=== PATIENT | male | born 1945 | race Caucasian/White ===

== ENCOUNTER → 2018-04-20 | Outpatient (CLI) | payer MEDICARE, BC ==
[2018-04-20 14:11] LABS: Albumin 3.9 g/dL (3.5-5.0); Calcium 8.8 mg/dL (8.4-10.2); Potassium 4.7 mmol/L (3.5-5.1); Total Bilirubin 0.8 mg/dL (0.2-1.3); Total Protein 6.4 g/dL (6.3-8.2)
[2018-04-20 14:25] LABS: T4, Free (Free Thyroxine) 0.73 ng/dL (0.78-2.19)
[2018-04-20 22:17] LABS: Hemoglobin A1C 6.2 % (4.0-6.0)
== END | disposition home or self-care (01) ==
LOC: LABWHC1 12:55
PROVIDERS: ATTEND Internal Medicine Endocrinology, Diabetes & Metabolism
DX: E03.8 Other specified hypothyroidism (principal); R73.03 Prediabetes
CPT/HCPCS: 36415; 80053; 83036; 84439; 84443

== ENCOUNTER 2019-03-01 20:41 | Emergency (ER) | payer BC, MEDICARE ==
[2019-03-01 20:57] VITALS: RESP 18; TEMP 99
[2019-03-01] MEDS ORDERED: cloNIDine HCL 0.2 MG TAB PO STA (21:06)
--- NOTE | 2019-03-01 21:10 | ED ---
General Adult HPI - General Chief complaint: Recheck/Abnormal Lab/Rx Stated complaint: Hypertension Time Seen by Provider: 03/01/19 20:45 Source: patient, EMS Mode of arrival: EMS Limitations: no limitations - History of Present Illness Initial comments: 73-year-old male presenting with generalized headache for the last 3 days. Patient states it comes return on 2 PM, is not accompanied by any associated symptoms, and is alleviated with Ativan. He denies any history of headaches in the past. He denies head injury, blood thinner use, change in vision, focal weakness. Patient states that he called EMS tonight because of he was speaking with his friend about a headache and they told him to be concerned that he could be a stroke. He currently is not having any symptoms. He was found to be markedly hypertensive by EMS. Patient states he is noncompliant with his Norvasc due to side effects, but states it is been taking his other medications as prescribed. He said he is tried multiple blood pressure medications the past but finds that he does not like the way they make him feel. He denies any chest pain or shortness of breath. - Related Data Home Medications Medication Instructions Recorded Confirmed Atenolol [Tenormin] 50 mg PO BID 07/04/17 07/04/17 Cholecalciferol (Vitamin D3) 2,000 unit PO DAILY 07/04/17 07/04/17 [Vitamin D3] LORazepam [Ativan] 3 mg PO DAILY 07/04/17 07/04/17 Verapamil HCl [Verapamil ER] 240 mg PO DAILY 07/04/17 07/04/17 Previous Rx's Medication Instructions Recorded Aspirin EC [Ecotrin Low Dose] 81 mg PO DAILY #30 tablet. 07/05/17 Doxazosin [Cardura] 1 mg PO HS #0 07/05/17 Fluticasone Nasal [place] [Flonase 1 spray EA NOSTRIL BID #1 spr 07/05/17 Nasal [place]] Levothyroxine Sodium [Synthroid] 25 mcg PO DAILY@0630 #30 tab 07/05/17 Losartan/Hydrochlorothiazide 1 each PO DAILY #30 tablet 07/05/17 [Losartan-Hctz 100-25 mg Tab] hydrALAZINE HCL [Apresoline] 50 mg PO TID #90 tab 07/06/17 Allergies Allergy/AdvReac Type Severity Reaction Status Date / Time amoxicillin Allergy Unknown Verified 03/01/19 20:57 cephalexin Allergy Unknown Verified 03/01/19 20:57 ciprofloxacin [From Cipro] Allergy Unknown Verified 03/01/19 20:57 doxycycline Allergy Unknown Verified 03/01/19 20:57 epinephrine Allergy Unknown Verified 03/01/19 20:57 methylprednisolone Allergy Unknown Verified 03/01/19 20:57 Review of Systems ROS Statement: Those systems with pertinent positive or pertinent negative responses have been documented in the HPI. Review of Systems Constitutional: Denies fever, chills Eyes: Denies change in vision, Denies pain Ears, nose, mouth, throat: Positive headaches, Denies sore throat Cardiovascular: Denies chest pain. Denies palpitations Respiratory: Denies shortness of breath, Denies cough Gastrointestinal: Denies abdominal pain. Denies nausea, vomiting, diarrhea. Genitourinary: Denies hematuria, Denies infections Musculoskeletal: Denies pain, Denies swelling Integumentary: Denies rash Neurological: Positive headache, focal weakness, focal numbness Psychiatric: Denies anxiety, Denies depression Hematologic/Lymphatic: Denies easy bleeding or bruising ROS Other: All systems not noted in ROS Statement are negative. Past Medical History Past Medical History: Hypertension, Renal Disease, Thyroid Disorder Additional Past Medical History / Comment(s): Pt states he is unable to urinate- he self caths 6-8 times a day-states he doesn't know the exact reason why he cannot urinate, renal disease and pt states GFR has been around 48, UTIs, cervical disc disease, hypothyroid, upper abdominal pain 2 weeks ago, bilateral tinnitis, headaches, sinusitis. History of Any Multi-Drug Resistant Organisms: None Reported Past Surgical History: No Surgical Hx Reported Additional Past Surgical History / Comment(s): colonoscopy-normal Past Anesthesia/Blood Transfusion Reactions: No Reported Reaction Past Psychological History: Anxiety, Depression, Panic Disorder Smoking Status: Former smoker Past Alcohol Use History: None Reported Past Drug Use History: None Reported - Past Family History Father Family Medical History: No Reported History, Cancer (colon Cancer) Additional Family Medical History / Comment(s): Father was healthy. He lived to be 82 yrs. old. Mother Family Medical History: CVA/TIA, Hypertension Additional Family Medical History / Comment(s): Mother had mental health problems. She lived to be 80yrs old. Son(s) Family Medical History: Coronary Artery Disease (CAD) (One son secondary to acute VT at age 45) Additional Family Medical History / Comment(s): Patient does not have any brothers or sisters, no daughters General Exam - General Exam Comments Initial Comments: General: Awake, alert, No acute Distress HENT: Normocephalic. Atraumatic Eyes: PERRL. EOMI. No scleral icterus. No injected conjunctiva Neck: Full ROM Chest/Lungs: Clear to auscultation bilaterally. No wheezing, rhonchi, or rales Cardiac: Regular rate, rhythm. No murmurs or rubs Abdomen/GI: Soft, nontender, nondistended. No rebound, guarding, or rigidity. Musculoskeletal: Full ROM Skin: Warm, dry, intact Psych: Anxious appearing Neurologic: A/Ox3, no weakness, no sensory deficit, no abnormal gait, no coordination deficit. Finger to nose intact bilaterally, no pronator drift. Limitations: no limitations Course Vital Signs 03/01/19 03/01/19 03/02/19 20:53 23:09 01:55 Temperature 99.0 F Pulse Rate 56 L 61 59 L Respiratory 18 18 18 Rate Blood Pressure 220/115 198/120 129/70 O2 Sat by Pulse 97 99 96 Oximetry EKG Findings - EKG Comments: EKG Findings:: EKG shows normal sinus rhythm at a rate of [address] segment elevation, depression. No prolonged QT/QTc or TX interval. No dysrythmia noted. Medical Decision Making - Medical Decision Making 73-year-old male present with hypertension. Initial exam the patient is awake, alert, no acute distress. VSS. Patient is asymptomatic at this time is markedly hypertensive. He was given Catapres and Ativan, which he takes chronically) with improvement of his hypertension. His laboratory workup was negative for acute process, and a CT was negative as well. I discussed with the patient in length the importance of compliance with his antihypertensives. The patient was refusing further antihypertensives in the department as the concern for making him feel lightheaded. The patient has an appointment with his primary care physician on Monday. He was agreeable to taking the antihypertensives he has at home as prescribed until his follow-up appointment then, where he plans to discuss his current regimen. At this time there is no e vidence of end organ damage and the patient is not having a hypertensive emergency. No point while he was in the emergency department did he have a headache.No further emergent workup indicated. The patient was given return to ED instructions. They were instructed to follow up with their primary care provider. Stable for discharge at this time. - Lab Data Result diagrams: 03/01/19 21:50 03/01/19 21:50 Lab Results 03/01/19 03/01/19 03/01/19 Range/Units 21:50 21:50 21:50 WBC 8.7 (3.8-10.6) k/uL RBC 5.11 (4.30-5.90) m/uL Hgb 15.6 (13.0-17.5) gm/dL Hct 46.9 (39.0-53.0) % MCV 91.8 (80.0-100.0) fL MCH 30.6 (25.0-35.0) pg MCHC 33.3 (31.0-37.0) g/dL RDW 12.7 (11.5-15.5) % Plt Count 233 (150-450) k/uL Neutrophils % 63 % Lymphocytes % 29 % Monocytes % 4 % Eosinophils % 1 % Basophils % 1 % Neutrophils # 5.4 (1.3-7.7) k/uL Lymphocytes # 2.5 (1.0-4.8) k/uL Monocytes # 0.4 (0-1.0) k/uL Eosinophils # 0.1 (0-0.7) k/uL Basophils # 0.1 (0-0.2) k/uL Sodium 141 (137-145) mmol/L Potassium 4.0 (3.5-5.1) mmol/L Chloride 104 (98-107) mmol/L Carbon Dioxide 26 (22-30) mmol/L Anion Gap 11 mmol/L BUN 15 (9-20) mg/dL Creatinine 1.25 (0.66-1.25) mg/dL Est GFR (CKD-EPI)AfAm 67 (>60 ml/min/1.73 sqM) Est GFR (CKD-EPI)NonAf 58 (>60 ml/min/1.73 sqM) Glucose 120 H (74-99) mg/dL Calcium 9.4 (8.4-10.2) mg/dL Total Bilirubin 0.9 (0.2-1.3) mg/dL AST 20 (17-59) U/L ALT 18 L (21-72) U/L Alkaline Phosphatase 74 (38-126) U/L Troponin I (0.000-0.034) ng/mL NT-Pro-B Natriuret Pep 227 pg/mL Total Protein 7.4 (6.3-8.2) g/dL Albumin 4.8 (3.5-5.0) g/dL TSH 4.880 H (0.465-4.680) mIU/L Free T4 0.76 L (0.78-2.19) ng/dL 03/01/19 Range/Units 21:50 WBC (3.8-10.6) k/uL RBC (4.30-5.90) m/uL Hgb (13.0-17.5) gm/dL Hct (39.0-53.0) % MCV (80.0-100.0) fL MCH (25.0-35.0) pg MCHC (31.0-37.0) g/dL RDW (11.5-15.5) % Plt Count (150-450) k/uL Neutrophils % % Lymphocytes % % Monocytes % % Eosinophils % % Basophils % % Neutrophils # (1.3-7.7) k/uL Lymphocytes # (1.0-4.8) k/uL Monocytes # (0-1.0) k/uL Eosinophils # (0-0.7) k/uL Basophils # (0-0.2) k/uL Sodium (137-145) mmol/L Potassium (3.5-5.1) mmol/L Chloride (98-107) mmol/L Carbon Dioxide (22-30) mmol/L Anion Gap mmol/L BUN (9-20) mg/dL Creatinine (0.66-1.25) mg/dL Est GFR (CKD-EPI)AfAm (>60 ml/min/1.73 sqM) Est GFR (CKD-EPI)NonAf (>60 ml/min/1.73 sqM) Glucose (74-99) mg/dL Calcium (8.4-10.2) mg/dL Total Bilirubin (0.2-1.3) mg/dL AST (17-59) U/L ALT (21-72) U/L Alkaline Phosphatase (38-126) U/L Troponin I <0.012 (0.000-0.034) ng/mL NT-Pro-B Natriuret Pep pg/mL Total Protein (6.3-8.2) g/dL Albumin (3.5-5.0) g/dL TSH (0.465-4.680) mIU/L Free T4 (0.78-2.19) ng/dL Disposition Clinical Impression: Hypertension Disposition: HOME SELF-CARE Condition: Good Additional Instructions: See your doctor on Monday as scheduled. Return to ED if you have chest pain, shortness of breath, or weakness in one arm or one leg Is patient prescribed a controlled substance at d/c from ED?: No Referrals: Jeff Abraham MD [Primary Care Provider] - 1-2 days
[2019-03-01 22:04] LABS: Basophils # (A) 0.1 k/uL (0-0.2); Basophils % (A) 1 %; Eosinophils # (A) 0.1 k/uL (0-0.7); Eosinophils % (A) 1 %; HCT 46.9 % (39.0-53.0); HGB 15.6 gm/dL (13.0-17.5); Lymphocytes # (A) 2.5 k/uL (1.0-4.8); Lymphocytes % (A) 29 %; MCH 30.6 pg (25.0-35.0); MCHC 33.3 g/dL (31.0-37.0); MCV 91.8 fL (80.0-100.0); Mean Platelet Volume 8.4; Monocytes # (A) 0.4 k/uL (0-1.0); Monocytes % (A) 4 %; Neutrophils # (A) 5.4 k/uL (1.3-7.7); Neutrophils % (A) 63 %; Platelet Count 233 k/uL (150-450); RBC 5.11 m/uL (4.30-5.90); RDW 12.7 % (11.5-15.5); WBC 8.7 k/uL (3.8-10.6)
[2019-03-01 22:19] LABS: Albumin 4.8 g/dL (3.5-5.0); Calcium 9.4 mg/dL (8.4-10.2); Total Bilirubin 0.9 mg/dL (0.2-1.3); Total Protein 7.4 g/dL (6.3-8.2)
--- NOTE | 2019-03-01 22:58 | XR ---
EXAM: XR Chest, 2 Views CLINICAL HISTORY: ITS.REASON XR Reason: Pain TECHNIQUE: Frontal and lateral views of the chest. COMPARISON: 07/04/2017. FINDINGS: Lungs: No consolidation. Pleural space: No significant pleural effusion or pneumothorax. Heart: Stable cardiomediastinal silhouette. Mediastinum: See above. Bones/joints: Scoliosis. IMPRESSION: No evidence of acute cardiopulmonary process.
--- NOTE | 2019-03-01 23:03 | CT ---
EXAM: CT Head Without Intravenous Contrast CLINICAL HISTORY: weakness, confusion ITS.REASON CT Reason: Papilledema TECHNIQUE: Axial computed tomography images of the head/brain without intravenous contrast. CTDI is 49.27 mGy and DLP is 1068.4 mGy-cm. This CT exam was performed using one or more of the following dose reduction techniques: automated exposure control, adjustment of the mA and/or kV according to patient size, and/or use of iterative reconstruction technique. COMPARISON: No relevant prior studies available. FINDINGS: Brain: No hemorrhage. No acute cortical infarct. No mass effect or midline shift. Involutional changes and small vessel disease. Small left basal ganglia lacunar infarct. Ventricles: Unremarkable. Bones/joints: No acute fracture. Soft tissues: Unremarkable. Sinuses: Unremarkable as visualized. Mastoid air cells: Bilateral mastoid fluid. IMPRESSION: No intracranial hemorrhage or acute cortical infarct.
[2019-03-01 23:13] LABS: T4, Free (Free Thyroxine) 0.76 ng/dL (0.78-2.19)
[2019-03-01] MEDS ORDERED: LORazepam 1 MG TAB PO STA (23:41)
[2019-03-02 01:56] VITALS: BP 129/70; PULSE 59
== END 2019-03-02 01:54 | disposition home or self-care (01) ==
LOC: EC 20:41
DX: I10 Essential (primary) hypertension (principal); F41.0 Panic disorder [episodic paroxysmal anxiety]; Z79.899 Other long term (current) drug therapy; Z88.0 Allergy status to penicillin; Z88.1 Allergy status to other antibiotic agents; Z88.6 Allergy status to analgesic agent; Z88.8 Allergy status to other drugs, medicaments and biological substances; Z87.891 Personal history of nicotine dependence
CPT/HCPCS: 36415; 70450; 71046; 80053; 83880; 84439; 84443; 84484; 85025; 93005; 99284

== ENCOUNTER 2019-07-26 15:50 | Emergency (ER) | payer MEDICARE ==
[2019-07-26] MEDS ORDERED: SODIUM CHLORIDE 0.9% 1,000 ML IV STA (16:04)
[2019-07-26] MEDS ORDERED: ONDANSETRON 4 MG/2 ML VIAL IVP STA (16:52)
--- NOTE | 2019-07-26 16:56 | ED ---
Abdominal Pain HPI - General Chief Complaint: Abdominal Pain Stated Complaint: Abd Pain Time Seen by Provider: 07/26/19 16:03 Source: patient, RN notes reviewed, old records reviewed Mode of arrival: ambulatory Limitations: no limitations - History of Present Illness Initial Comments: Patient is a 74-year-old male presents today for abdominal pain and left hand side. Patient reports his been having this pain for the past 2 weeks, and reports that he follow up with primary care doctor. He had outpatient CAT scan which showed a 1 mm gallstone. Patient reports that he's had some diarrhea. Symptoms were worsening after eating a lot of oil and vegetables yesterday. Patient presents the having the symptoms for the past year off and on. He states he's had no bloody stools or bloody emesis. He denies any fevers. Patient reports he does have to straight cath himself. - Related Data Home Medications Medication Instructions Recorded Confirmed Atenolol [Tenormin] 50 mg PO BID 07/04/17 07/26/19 LORazepam [Ativan] 3 mg PO HS 07/04/17 07/26/19 Cholecalciferol [Vitamin D3] 400 unit PO DAILY 07/26/19 07/26/19 Fluticasone Nasal [place] [Flonase 2 spray EA NOSTRIL DAILY 07/26/19 07/26/19 Nasal [place]] amLODIPine [Norvasc] 2.5 mg PO DAILY 07/26/19 07/26/19 cloNIDine HCL [Catapres] 0.05 mg PO DAILY 07/26/19 07/26/19 Previous Rx's Medication Instructions Recorded Aspirin EC [Ecotrin Low Dose] 81 mg PO DAILY #30 tablet. 07/05/17 Dicyclomine [Bentyl] 10 mg PO TID #12 capsule 07/26/19 Famotidine [Pepcid] 20 mg PO DAILY #12 tablet 07/26/19 Allergies Allergy/AdvReac Type Severity Reaction Status Date / Time amoxicillin Allergy Unknown Verified 07/26/19 18:31 cephalexin Allergy Unknown Verified 07/26/19 18:31 ciprofloxacin [From Cipro] Allergy Unknown Verified 07/26/19 18:31 doxazosin Allergy Unknown Verified 07/26/19 18:31 doxycycline Allergy Unknown Verified 07/26/19 18:31 epinephrine Allergy Unknown Verified 07/26/19 18:31 losartan Allergy Unknown Verified 07/26/19 18:31 methylprednisolone Allergy Unknown Verified 07/26/19 18:31 Review of Systems ROS Statement: Those systems with pertinent positive or pertinent negative responses have been documented in the HPI. ROS Other: All systems not noted in ROS Statement are negative. Past Medical History Past Medical History: Hypertension, Renal Disease, Thyroid Disorder Additional Past Medical History / Comment(s): Pt states he is unable to urinate- he self caths 6-8 times a day-states he doesn't know the exact reason why he cannot urinate, renal disease and pt states GFR has been around 48, UTIs, cervical disc disease, hypothyroid, upper abdominal pain 2 weeks ago, bilateral tinnitis, headaches, sinusitis. History of Any Multi-Drug Resistant Organisms: None Reported Past Surgical History: No Surgical Hx Reported Additional Past Surgical History / Comment(s): colonoscopy-normal Past Anesthesia/Blood Transfusion Reactions: No Reported Reaction Past Psychological History: Anxiety, Depression, Panic Disorder Smoking Status: Former smoker Past Alcohol Use History: None Reported Past Drug Use History: None Reported - Past Family History Father Family Medical History: No Reported History, Cancer (colon Cancer) Additional Family Medical History / Comment(s): Father was healthy. He lived to be 82 yrs. old. Mother Family Medical History: CVA/TIA, Hypertension Additional Family Medical History / Comment(s): Mother had mental health problems. She lived to be 80yrs old. Son(s) Family Medical History: Coronary Artery Disease (CAD) (One son secondary to acute UT at age 45) Additional Family Medical History / Comment(s): Patient does not have any brothers or sisters, no daughters General Exam - General Exam Comments Initial Comments: All appearing 74-year-old male. No acute distress. Limitations: no limitations General appearance: alert, in no apparent distress Head exam: Present: atraumatic, normocephalic, normal inspection Eye exam: Present: normal appearance, PERRL, EOMI. Absent: scleral icterus, conjunctival injection, periorbital swelling ENT exam: Present: normal exam, mucous membranes moist Neck exam: Present: normal inspection. Absent: tenderness, meningismus, lymphadenopathy Respiratory exam: Present: normal lung sounds bilaterally. Absent: respiratory distress, wheezes, rales, rhonchi, stridor Cardiovascular Exam: Present: regular rate, normal rhythm, normal heart sounds. Absent: systolic murmur, diastolic murmur, rubs, gallop, clicks GI/Abdominal exam: Present: soft, normal bowel sounds. Absent: distended, tenderness, guarding, rebound, rigid Extremities exam: Present: normal inspection, full ROM, normal capillary refill. Absent: tenderness, pedal edema, joint swelling, calf tenderness Back exam: Present: normal inspection Neurological exam: Present: alert Psychiatric exam: Present: normal affect, normal mood Skin exam: Present: warm, dry, intact, normal color. Absent: rash Course Vital Signs 07/26/19 07/26/19 15:53 17:13 Temperature 98.5 F Pulse Rate 83 Respiratory 20 16 Rate Blood Pressure 169/108 O2 Sat by Pulse 98 Oximetry - Reevaluation(s) Reevaluation #1: 07/26/19 17:56 Review patient's CAT scan from [address] abdomen without oral or IV. There was a atrophic left kidney. 1 mm density in the gallbladder consistent with either a solitary stone or one hyperplastic cholecystosis. No free air. A ppendix not included pelvis was not included on that exam. There is a vascular cause Patient noted in the aorta without any aneurysmal dilation. Medical Decision Making - Medical Decision Making 74-year-old male presents with left-sided abdominal pain today and some diarrhea. Symptoms started after eating hot oil and vegetables. He had an out patient CAT scan for his chronic abdominal pain over the past year. This was reviewed, showed once a 1 mm gallstone. This time amylase lipase and liver liver enzymes are normal. Patient's labwork was reviewed and unremarkable. Resting heavily that has no abdominal tenderness. Discussed the Patient follow- up with his primary care doctor for this chronic abdominal pain. - Lab Data Result diagrams: 07/26/19 16:46 07/26/19 16:46 Lab Results 07/26/19 07/26/19 07/26/19 Range/Units 16:46 16:46 17:05 WBC 7.2 (3.8-10.6) k/uL RBC 4.98 (4.30-5.90) m/uL Hgb 15.9 (13.0-17.5) gm/dL Hct 44.6 (39.0-53.0) % MCV 89.6 (80.0-100.0) fL MCH 32.0 (25.0-35.0) pg MCHC 35.7 (31.0-37.0) g/dL RDW 12.0 (11.5-15.5) % Plt Count 205 (150-450) k/uL Neutrophils % 75 % Lymphocytes % 16 % Monocytes % 6 % Eosinophils % 1 % Basophils % 1 % Neutrophils # 5.5 (1.3-7.7) k/uL Lymphocytes # 1.2 (1.0-4.8) k/uL Monocytes # 0.4 (0-1.0) k/uL Eosinophils # 0.1 (0-0.7) k/uL Basophils # 0.1 (0-0.2) k/uL Sodium 138 (137-145) mmol/L Potassium 4.2 (3.5-5.1) mmol/L Chloride 104 (98-107) mmol/L Carbon Dioxide 24 (22-30) mmol/L Anion Gap 10 mmol/L BUN 13 (9-20) mg/dL Creatinine 1.36 H (0.66-1.25) mg/dL Est GFR (CKD-EPI)AfAm 59 (>60 ml/min/1.73 sqM) Est GFR (CKD-EPI)NonAf 51 (>60 ml/min/1.73 sqM) Glucose 140 H (74-99) mg/dL Calcium 9.0 (8.4-10.2) mg/dL Total Bilirubin 0.9 (0.2-1.3) mg/dL Conjugated Bilirubin 0.0 (0.0-0.3) mg/dL Unconjugated Bilirubin 0.7 (0.0-1.1) mg/dL Delta Bilirubin 0.2 (0.0-0.2) mg/dL AST 22 (17-59) U/L ALT 26 (21-72) U/L Alkaline Phosphatase 91 (38-126) U/L Total Protein 6.9 (6.3-8.2) g/dL Albumin 4.3 (3.5-5.0) g/dL Amylase 76 (30-110) U/L Lipase 123 (23-300) U/L Urine Color Light Yellow Urine Appearance Clear (Clear) Urine pH 6.5 (5.0-8.0) Ur Specific [place] 1.004 (1.001-1.035) Urine Protein Negative (Negative) Urine Glucose (UA) Negative (Negative) Urine Ketones Negative (Negative) Urine Blood Negative (Negative) Urine Nitrite Negative (Negative) Urine Bilirubin Negative (Negative) Urine Urobilinogen <2.0 (<2.0) mg/dL Ur Leukocyte Esterase Trace H (Negative) Urine RBC 1 (0-5) /hpf Urine WBC 3 (0-5) /hpf Ur Squamous Epith Cells <1 (0-4) /hpf - Radiology Data Radiology results: report reviewed KB she is uncertain about gas pattern. Disposition Clinical Impression: Abdominal pain Disposition: HOME SELF-CARE Condition: Good Instructions (If sedation given, give patient instructions): Abdominal Pain (ED) Additional Instructions: Patient advised to follow-up with your primary care physician. Return to emergency department if any alarming signs or symptoms occur. Take medications as prescribed. Prescriptions: Dicyclomine [Bentyl] 10 mg PO TID #12 capsule Famotidine [Pepcid] 20 mg PO DAILY #12 tablet Is patient prescribed a controlled substance at d/c from ED?: No Referrals: Jeff Abraham MD [Primary Care Provider] - 1-2 days Time of Disposition: 18:03
[2019-07-26 16:57] LABS: Basophils # (A) 0.1 k/uL (0-0.2); Basophils % (A) 1 %; Eosinophils # (A) 0.1 k/uL (0-0.7); Eosinophils % (A) 1 %; HCT 44.6 % (39.0-53.0); HGB 15.9 gm/dL (13.0-17.5); Lymphocytes # (A) 1.2 k/uL (1.0-4.8); Lymphocytes % (A) 16 %; MCHC 35.7 g/dL (31.0-37.0); MCV 89.6 fL (80.0-100.0); Mean Platelet Volume 7.5; Monocytes # (A) 0.4 k/uL (0-1.0); Monocytes % (A) 6 %; Neutrophils # (A) 5.5 k/uL (1.3-7.7); Neutrophils % (A) 75 %; Platelet Count 205 k/uL (150-450); RBC 4.98 m/uL (4.30-5.90); WBC 7.2 k/uL (3.8-10.6)
--- NOTE | 2019-07-26 17:08 | XR ---
EXAMINATION TYPE: XR KUB DATE OF EXAM: 07/26/2019 5:00 PM CLINICAL HISTORY: Abdominal pain TECHNIQUE: Single upright image of the abdomen is obtained. COMPARISON: None. FINDINGS: There is a levoscoliosis of the thoracolumbar spine and dextroscoliosis of the lumbar spine . Extensive multilevel degenerative disc disease and diffuse osseous demineralization. Mottled stool seen throughout the colon, overall mild the. No dilated large or small bowel. No eviden ce of pneumoperitoneum. Lung bases are well aerated. IMPRESSION: Nonobstructive bowel gas pattern.
[2019-07-26 17:13] VITALS: RESP 16
[2019-07-26 17:18] LABS: Albumin 4.3 g/dL (3.5-5.0); Bilirubin, Delta 0.2 mg/dL (0.0-0.2); Bilirubin,Unconjugated 0.7 mg/dL (0.0-1.1); Potassium 4.2 mmol/L (3.5-5.1); Total Bilirubin 0.9 mg/dL (0.2-1.3); Total Protein 6.9 g/dL (6.3-8.2)
[2019-07-26 18:21] LABS: Appearance,Urine Clear (Clear); Bilirubin,Urine Negative (Negative); Blood,Urine Negative (Negative); Color,Urine Light Yellow; Glucose,Urine (UA) Negative (Negative); Ketones,Urine Negative (Negative); Leukocyte Esterase,Urine Trace (Negative); Nitrite,Urine Negative (Negative); PH, Urine 6.5 (5.0-8.0); Protein,Urine Negative (Negative); RBC,Urine 1 /hpf (0-5); Specific Gravity,Urine 1.004 (1.001-1.035); Squamous Epithelial Cell,Urine <1 /hpf (0-4); Urobilinogen,Urine <2.0 mg/dL (<2.0)
[2019-07-26 18:47] VITALS: BP 148/78; PULSE 68; TEMP 98.3
== END 2019-07-26 18:45 | disposition home or self-care (01) ==
LOC: EC 15:50
DX: R10.9 Unspecified abdominal pain (principal); G89.29 Other chronic pain; K80.20 Calculus of gallbladder without cholecystitis without obstruction; R19.7 Diarrhea, unspecified; I10 Essential (primary) hypertension; F41.0 Panic disorder [episodic paroxysmal anxiety]; Z87.891 Personal history of nicotine dependence; Z88.0 Allergy status to penicillin; Z88.1 Allergy status to other antibiotic agents; Z88.4 Allergy status to anesthetic agent; Z88.8 Allergy status to other drugs, medicaments and biological substances; Z79.51 Long term (current) use of inhaled steroids; Z79.899 Other long term (current) drug therapy; Z87.448 Personal history of other diseases of urinary system; Z80.0 Family history of malignant neoplasm of digestive organs; Z53.20 Procedure and treatment not carried out because of patient's decision for unspecified reasons
CPT/HCPCS: 36415; 74018; 80053; 81001; 82150; 82248; 83690; 85025; 96360; 99284

== ENCOUNTER 2019-08-27 12:09 | Emergency (ER) | payer MEDICARE ==
[2019-08-27 12:34] VITALS: RESP 16; TEMP 98.9
--- NOTE | 2019-08-27 12:35 | ED ---
General Adult HPI - General Chief complaint: Upper Respiratory Infection Stated complaint: URI Time Seen by Provider: 08/27/19 12:21 Source: patient Mode of arrival: wheelchair Limitations: no limitations - History of Present Illness Initial comments: Patient presents the ED with his roommate for evaluation. Patient states that he has had nasal/sinus congestion, postnasal drainage and a "rattly" cough for the past week or so. Patient also states that he felt that he had a fever 3 days ago. Patient denies taking any antipyretic medication today. Patient states that he has been using a fluticasone nasal spray without much improvement. He denies having any pain, headache, sore throat, chest pain, dyspnea, hemoptysis, palpitations, dizziness, abdominal pain, nausea/vomiting/diarrhea, urinary symptoms, leg or calf swelling or pain, or any other symptoms or complaints. - Related Data Home Medications Medication Instructions Recorded Confirmed RX: Atenolol [Tenormin] 50 mg PO BID 07/04/17 07/26/19 RX: LORazepam [Ativan] 3 mg PO HS 07/04/17 07/26/19 Cholecalciferol [Vitamin D3] 400 unit PO DAILY 07/26/19 07/26/19 RX: Fluticasone Nasal [place] 2 spray EA NOSTRIL DAILY 07/26/19 07/26/19 [Flonase Nasal [place]] amLODIPine [Norvasc] 2.5 mg PO DAILY 07/26/19 07/26/19 cloNIDine HCL [Catapres] 0.05 mg PO DAILY 07/26/19 07/26/19 Previous Rx's Medication Instructions Recorded RX: Aspirin EC [Ecotrin Low Dose] 81 mg PO DAILY #30 tablet.dr 07/05/17 Dicyclomine [Bentyl] 10 mg PO TID #12 capsule 07/26/19 Famotidine [Pepcid] 20 mg PO DAILY #12 tablet 07/26/19 RX: Azithromycin [Zithromax Z-pack] 250 mg PO DIRECTED #6 tab 08/27/19 Allergies Allergy/AdvReac Type Severity Reaction Status Date / Time amoxicillin Allergy Unknown Verified 07/26/19 18:31 cephalexin Allergy Unknown Verified 07/26/19 18:31 ciprofloxacin [From Cipro] Allergy Unknown Verified 07/26/19 18:31 doxazosin Allergy Unknown Verified 07/26/19 18:31 doxycycline Allergy Unknown Verified 07/26/19 18:31 epinephrine Allergy Unknown Verified 07/26/19 18:31 losartan Allergy Unknown Verified 07/26/19 18:31 methylprednisolone Allergy Unknown Verified 07/26/19 18:31 Review of Systems ROS Statement: Those systems with pertinent positive or pertinent negative responses have been documented in the HPI. ROS Other: All systems not noted in ROS Statement are negative. Past Medical History Past Medical History: Hypertension, Renal Disease, Thyroid Disorder Additional Past Medical History / Comment(s): Pt states he is unable to urinate- he self caths 6-8 times a day-states he doesn't know the exact reason why he cannot urinate, renal disease and pt states GFR has been around 48, UTIs, cervical disc disease, hypothyroid, upper abdominal pain 2 weeks ago, bilateral tinnitis, headaches, sinusitis. History of Any Multi-Drug Resistant Organisms: None Reported Past Surgical History: No Surgical Hx Reported Additional Past Surgical History / Comment(s): colonoscopy-normal Past Anesthesia/Blood Transfusion Reactions: No Reported Reaction Past Psychological History: Anxiety, Depression, Panic Disorder Smoking Status: Former smoker Past Alcohol Use History: None Reported Past Drug Use History: None Reported - Past Family History Father Family Medical History: No Reported History, Cancer (colon Cancer) Additional Family Medical History / Comment(s): Father was healthy. He lived to be 82 yrs. old. Mother Family Medical History: CVA/TIA, Hypertension Additional Family Medical History / Comment(s): Mother had mental health problems. She lived to be 80yrs old. Son(s) Family Medical History: Coronary Artery Disease (CAD) (One son secondary to acute [place] at age 45) Additional Family Medical History / Comment(s): Patient does not have any brothers or sisters, no daughters General Exam Limitations: no limitations General appearance: alert, in no apparent distress Head exam: Present: atraumatic, normocephalic Eye exam: Present: normal appearance, EOMI ENT exam: Present: mucous membranes moist, other (Bilateral nasal congestion) Neck exam: Present: other (Trachea is in midline). Absent: tenderness, meningismus Respiratory exam: Present: normal lung sounds bilaterally. Absent: respiratory distress, wheezes, rales, rhonchi Cardiovascular Exam: Present: regular rate, normal rhythm, normal heart sounds, other (Normal radial pulses bilaterally) GI/Abdominal exam: Present: soft. Absent: distended, tenderness Extremities exam: Absent: tenderness, pedal edema, calf tenderness Neurological exam: Present: alert, oriented X3. Absent: motor sensory deficit Psychiatric exam: Present: normal affect, normal mood Skin exam: Present: warm, dry, intact, normal color Course Vital Signs 08/27/19 08/27/19 08/27/19 12:14 12:30 12:33 Temperature 98.4 F 98.9 F Pulse Rate 77 73 Respiratory 18 18 16 Rate Blood Pressure 164/111 147/105 O2 Sat by Pulse 96 97 Oximetry Medical Decision Making - Medical Decision Making Patient is afebrile and breathing comfortably in the emergency room. Patient has a normal room air oxygen saturation. Patient's chest x-ray is negative. Patient's influenza studies are negative. Will treat the patient with a course of amoxicillin for acute bronchitis and sinusitis given the length of his illness, his age and hi risk factors. Patient was also instructed to continue using the fluticasone nasal spray that he is currently taking. Patient was clearly explained return and follow-up instructions. Patient was instructed to follow up closely with his primary care provider. He feels comfortable going home at this time, and he feels comfortable with this plan. - Lab Data Lab Results 08/27/19 Range/Units 12:35 Influenza Type A RNA Not Detected (Not Detectd) Influenza Type B (PCR) Not Detected (Not Detectd) - Radiology Data Radiology results: report reviewed (Chest x-ray shows "no suspicious new acute pulmonary process, no significant change from prior") Disposition Clinical Impression: Bronchitis, Sinusitis Disposition: HOME SELF-CARE Condition: Stable Instructions (If sedation given, give patient instructions): Acute Bronchitis (ED), Sinusitis (ED) Additional Instructions: Return to the ER immediately should you develop shortness of breath, chest pain, a high fever, vomiting, feeling dizzy or faint, or new or worsening symptoms. Follow up closely with your primary care provider. Prescriptions: RX: Azithromycin [Zithromax Z-pack] 250 mg PO DIRECTED #6 tab Is patient prescribed a controlled substance at d/c from ED?: No Referrals: Jeff Abraham MD [Primary Care Provider] - 1-2 days Time of Disposition: 13:40
--- NOTE | 2019-08-27 13:07 | XR ---
EXAMINATION TYPE: XR chest 2V DATE OF EXAM: 08/27/2019 COMPARISON: Chest x-ray March 01, 2019 HISTORY: Productive cough for a few days. TECHNIQUE: Frontal and lateral views of the chest are obtained. FINDINGS: There is chronic parenchymal change without suspicious focal air space opacity, pleural ef fusion, or pneumothorax seen. The cardiac silhouette size is within normal limits. Underlying scolio sis. IMPRESSION: No suspicious new acute pulmonary process. No significant change from prior.
[2019-08-27 14:38] VITALS: BP 152/98; PULSE 67
== END 2019-08-27 14:46 | disposition home or self-care (01) ==
LOC: EC 12:09
DX: J20.9 Acute bronchitis, unspecified (principal); J32.9 Chronic sinusitis, unspecified; I10 Essential (primary) hypertension; F41.9 Anxiety disorder, unspecified; F32.9 Major depressive disorder, single episode, unspecified; Z79.899 Other long term (current) drug therapy; Z88.0 Allergy status to penicillin; Z88.1 Allergy status to other antibiotic agents; Z88.8 Allergy status to other drugs, medicaments and biological substances; Z87.891 Personal history of nicotine dependence
CPT/HCPCS: 71046; 87502; 99283

== ENCOUNTER 2024-07-20 00:19 | Emergency (ER) | payer MEDICARE ==
[2024-07-20 00:26] VITALS: TEMP 98.3
--- NOTE | 2024-07-20 00:31 | ED ---
Arrhythmia/Palpitations HPI - General Chief Complaint: Arrhythmia/Palpitations Stated Complaint: Palpitations Time Seen by Provider: 07/20/24 00:21 Source: patient, RN notes reviewed, old records reviewed Mode of arrival: EMS Limitations: no limitations - History of Present Illness Initial Comments: This is a 79-year-old male presenting today for evaluation of palpitations and elevated heart rate here in the ER has persistent symptoms, elevated heart rate elevated blood pressure recently stopped taking one of his blood pressure medication MD Complaint: rapid heart beat, palpitations, irregular heart beat, atrial fibrillation -: hour(s) Arrhythmia History: atrial fibrillation Associated Symptoms: denies other symptoms Treatments Prior to Arrival: other - Related Data Home Medications Medication Instructions Recorded Confirmed LORazepam [Ativan] 3 mg PO HS 07/04/17 07/26/19 atenoloL [Tenormin] 50 mg PO BID 07/04/17 07/26/19 Cholecalciferol [Vitamin D3] 400 unit PO DAILY 07/26/19 07/26/19 Fluticasone Nasal [place] [Flonase 2 spray EA NOSTRIL DAILY 07/26/19 07/26/19 Nasal [place]] amLODIPine [Norvasc] 2.5 mg PO DAILY 07/26/19 07/26/19 cloNIDine HCL [Catapres] 0.05 mg PO DAILY 07/26/19 07/26/19 Previous Rx's Medication Instructions Recorded Aspirin EC [Ecotrin Low Dose] 81 mg PO DAILY #30 tablet. 07/05/17 Dicyclomine [Bentyl] 10 mg PO TID #12 capsule 07/26/19 Famotidine [Pepcid] 20 mg PO DAILY #12 tablet 07/26/19 Azithromycin [Zithromax Z-pack (6 250 mg PO DIRECTED #6 tab 08/27/19 tabs)] Allergies Allergy/AdvReac Type Severity Reaction Status Date / Time amoxicillin Allergy Unknown Verified 07/26/19 18:31 cephalexin Allergy Unknown Verified 07/26/19 18:31 ciprofloxacin [From Cipro] Allergy Unknown Verified 07/26/19 18:31 doxazosin Allergy Unknown Verified 07/26/19 18:31 doxycycline Allergy Unknown Verified 07/26/19 18:31 epinephrine Allergy Unknown Verified 07/26/19 18:31 losartan Allergy Unknown Verified 07/26/19 18:31 methylprednisolone Allergy Unknown Verified 07/26/19 18:31 Review of Systems ROS Statement: Those systems with pertinent positive or pertinent negative responses have been documented in the HPI. ROS Other: All systems not noted in ROS Statement are negative. Past Medical History Past Medical History: Hypertension, Renal Disease, Thyroid Disorder Additional Past Medical History / Comment(s): Pt states he is unable to urinate- he self caths 6-8 times a day-states he doesn't know the exact reason why he cannot urinate, renal disease and pt states GFR has been around 48, UTIs, cervical disc disease, hypothyroid, upper abdominal pain 2 weeks ago, bilateral tinnitis, headaches, sinusitis. History of Any Multi-Drug Resistant Organisms: None Reported Past Surgical History: No Surgical Hx Reported Additional Past Surgical History / Comment(s): colonoscopy-normal Past Anesthesia/Blood Transfusion Reactions: No Reported Reaction Past Psychological History: Anxiety, Depression, Panic Disorder Smoking Status: Former smoker Past Alcohol Use History: None Reported Past Drug Use History: None Reported - Past Family History Father Family Medical History: No Reported History, Cancer (colon Cancer) Additional Family Medical History / Comment(s): Father was healthy. He lived to be 82 yrs. old. Mother Family Medical History: CVA/TIA, Hypertension Additional Family Medical History / Comment(s): Mother had mental health problems. She lived to be 80yrs old. Son(s) Family Medical History: Coronary Artery Disease (CAD) (One son secondary to acute [place] at age 45) Additional Family Medical History / Comment(s): Patient does not have any brothers or sisters, no daughters General Exam Limitations: no limitations General appearance: alert, in no apparent distress, anxious Head exam: Present: atraumatic, normocephalic, normal inspection Eye exam: Present: normal appearance, PERRL, EOMI. Absent: scleral icterus, conjunctival injection, periorbital swelling ENT exam: Present: normal exam, mucous membranes moist Neck exam: Present: normal inspection. Absent: tenderness, meningismus, lymphadenopathy Respiratory exam: Present: normal lung sounds bilaterally. Absent: respiratory distress, wheezes, rales, rhonchi, stridor Cardiovascular Exam: Present: normal rhythm, tachycardia, irregular rhythm, normal heart sounds. Absent: systolic murmur, diastolic murmur, rubs, gallop, clicks GI/Abdominal exam: Present: soft, normal bowel sounds. Absent: distended, tenderness, guarding, rebound, rigid Extremities exam: Present: normal inspection, full ROM, normal capillary refill. Absent: tenderness, pedal edema, joint swelling, calf tenderness Back exam: Present: normal inspection Neurological exam: Present: alert, oriented X3, CN II-XII intact Psychiatric exam: Present: normal affect, normal mood Skin exam: Present: warm, dry, intact, normal color. 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 sent in by a medical professional or institution (, PA, HUMAN RESOURCES CLERK, urgent care, hospital, or detention...) When possible be specific @ -no Did you speak to anyone other than the patient for history (EMS, parent, family, police, friend...)? What history was obtained from this source @ -no Did you review nursing and triage notes (agree or disagree)? Why? @ -agree Are old charts reviewed (outside hosp., previous admission, EMS record, old EKG, old radiological studies, urgent care reports/EKG's, detention records)? Report findings @ -yes Differential Diagnosis (chest pain, altered mental status, abdominal pain women, abdominal pain men, vaginal bleeding, weakness, fever, dyspnea, syncope, headache, dizziness, GI bleed, back pain, seizure, CVA, palpatations, mental health, musculoskeletal)? @ -prior EKG interpreted by me (3pts min.). @ -yes X-rays interpreted by me (1pt min.). @ -yes negative for acute disease CT interpreted by me (1pt min.). @ -no U/S interpreted by me (1pt. min.). @ -no What testing was considered but not performed or refused? (CT, X-rays, U/S, labs)? Why? @ -none What meds were considered but not given or refused? Why? @ -none Did you discuss the management of the patient with other professionals (professionals i.e. , PA, HUMAN RESOURCES CLERK, lab, RT, psych nurse, professor of social work, buhr mill operator, teacher, chief administrative officer, manager case management)? Give summary @ -no Was smoking cessation discussed for >3mins.? @ -no Was critical care preformed (if so, how long)? @ -no Were there social determinants of health that impacted care today? How? (Homelessness, low income, unemployed, alcoholism, drug addiction, transportation, low edu. Level, literacy, decrease access to med. care, intermediate, rehab)? @ -none Was there de-escalation of care discussed even if they declined (Discuss DNR or withdrawal of care, Hospice)? DNR status @ -no What co-morbidities impacted this encounter? (DM, HTN, Smoking, COPD, CAD, Cancer, CVA, ARF, Chemo, Hep., AIDS, mental health diagnosis, sleep apnea, morbid obesity)? @ -none Was patient admitted / discharged? Hospital course, mention meds given and route, prescriptions, significant lab abnormalities, going to OR and other pertinent info. @ - Undiagnosed new problem with uncertain prognosis? @ -no Drug Therapy requiring intensive monitoring for toxicity (Heparin, Nitro, Insulin, Cardizem)? @ -no Were any procedures done? @ -no Diagnosis/symptom? @ - Acute, or Chronic, or Acute on Chronic? @ -Acute Uncomplicated (without systemic symptoms) or Complicated (systemic symptoms)? @ -Complicated Side effects of treatment? @ -no Exacerbation, Progression, or Severe Exacerbation? @ -exacerbation Poses a threat to life or bodily function? How? (Chest pain, [place], RI, pneumonia, PE, COPD, DKA, ARF, appy, cholecystitis, CVA, Diverticulitis, Homicidal, Suicidal, threat to staff... and all critical care pts) @ -yes Reevaluation #5: Differential Palpitations Ventricular arrhythmias, atrial arrhythmias, myocardial infarction, anemia, thyrotoxicosis, electrolyte imbalance, hypokalemia, pulmonary embolism, pulmonary disease, drugs, alcohol, anxiety, stress.... This is not meant to be an all-inclusive list. EKG Findings - EKG Comments: EKG Findings:: EKG is sinus 94 [place] 240 QRS 102 QTc 405 - EKG Results: EKG: interpreted by [facility] Medical Decision Making - Medical Decision Making 79 Male to the ER for evaluation of palpitations and anxiety severely elevated blood pressure recently off 1 blood pressure medication. Patient blood pressure controlled here in the ER feels well x-ray negative patient can be discharged home - Lab Data Result diagrams: 07/20/24 00:35 07/20/24 00:35 Lab Results 07/20/24 07/20/24 07/20/24 Range/Units 00:35 00:35 00:35 WBC 11.1 H (3.8-10.6) k/uL RBC 4.83 (4.30-5.90) m/uL Hgb 15.0 (13.0-17.5) gm/dL Hct 44.7 (39.0-53.0) % MCV 92.6 (80.0-100.0) fL MCH 31.1 (25.0-35.0) pg MCHC 33.6 (31.0-37.0) g/dL RDW 13.1 (11.5-15.5) % Plt Count 188 (150-450) k/uL MPV 9.5 Neutrophils % 79 % Lymphocytes % 12 % Monocytes % 6 % Eosinophils % 1 % Basophils % 1 % Neutrophils # 8.8 H (1.3-7.7) k/uL Lymphocytes # 1.4 (1.0-4.8) k/uL Monocytes # 0.6 (0-1.0) k/uL Eosinophils # 0.2 (0-0.7) k/uL Basophils # 0.1 (0-0.2) k/uL PT 10.0 (10.0-12.5) sec INR 0.9 (<1.2) APTT 24.8 (22.0-30.0) sec Sodium 138 (137-145) mmol/L Potassium 4.2 (3.5-5.1) mmol/L Chloride 107 (98-107) mmol/L Carbon Dioxide 21 L (22-30) mmol/L Anion Gap 10 mmol/L BUN 21 H (9-20) mg/dL Creatinine 1.47 H (0.66-1.25) mg/dL Est GFR (CKD-EPI)AfAm 52 (>60 ml/min/1.73 sqM) Est GFR (CKD-EPI)NonAf 45 (>60 ml/min/1.73 sqM) Glucose 129 H (74-99) mg/dL Plasma Lactic Acid Ming (0.7-2.0) mmol/L Calcium 8.8 (8.4-10.2) mg/dL Phosphorus 3.5 (2.5-4.5) mg/dL Magnesium 1.8 (1.6-2.3) mg/dL Total Bilirubin 0.7 (0.2-1.3) mg/dL AST 20 (17-59) U/L ALT 15 (4-49) U/L Alkaline Phosphatase 101 (38-126) U/L Troponin I (0.000-0.034) ng/mL Total Protein 7.0 (6.3-8.2) g/dL Albumin 4.5 (3.5-5.0) g/dL 07/20/24 07/20/24 Range/Units 00:35 00:35 WBC (3.8-10.6) k/uL RBC (4.30-5.90) m/uL Hgb (13.0-17.5) gm/dL Hct (39.0-53.0) % MCV (80.0-100.0) fL MCH (25.0-35.0) pg MCHC (31.0-37.0) g/dL RDW (11.5-15.5) % Plt Count (150-450) k/uL MPV Neutrophils % % Lymphocytes % % Monocytes % % Eosinophils % % Basophils % % Neutrophils # (1.3-7.7) k/uL Lymphocytes # (1.0-4.8) k/uL Monocytes # (0-1.0) k/uL Eosinophils # (0-0.7) k/uL Basophils # (0-0.2) k/uL PT (10.0-12.5) sec INR (<1.2) APTT (22.0-30.0) sec Sodium (137-145) mmol/L Potassium (3.5-5.1) mmol/L Chloride (98-107) mmol/L Carbon Dioxide (22-30) mmol/L Anion Gap mmol/L BUN (9-20) mg/dL Creatinine (0.66-1.25) mg/dL Est GFR (CKD-EPI)AfAm (>60 ml/min/1.73 sqM) Est GFR (CKD-EPI)NonAf (>60 ml/min/1.73 sqM) Glucose (74-99) mg/dL Plasma Lactic Acid Ming 1.8 (0.7-2.0) mmol/L Calcium (8.4-10.2) mg/dL Phosphorus (2.5-4.5) mg/dL Magnesium (1.6-2.3) mg/dL Total Bilirubin (0.2-1.3) mg/dL AST (17-59) U/L ALT (4-49) U/L Alkaline Phosphatase (38-126) U/L Troponin I <0.012 (0.000-0.034) ng/mL Total Protein (6.3-8.2) g/dL Albumin (3.5-5.0) g/dL - EKG Data -: EKG Interpreted by [facility] - Radiology Data Radiology results: report reviewed (Chest x-ray is negative for acute disease), image reviewed Disposition Clinical Impression: Palpitations, Hypertensive urgency, Anxiety Disposition: HOME SELF-CARE Condition: Good Instructions (If sedation given, give patient instructions): Heart Palpitations (ED) Is patient prescribed a controlled substance at d/c from ED?: No Referrals: Jhony Hendrix MD [Primary Care Provider] - 1-2 days Time of Disposition: 03:00
[2024-07-20] MEDS: SODIUM CHLORIDE 0.9% 1,000 ML IV STA ×2 (00:58→02:30)
[2024-07-20 00:59] LABS: Basophils # (A) 0.1 k/uL (0-0.2); Basophils % (A) 1 %; Eosinophils # (A) 0.2 k/uL (0-0.7); Eosinophils % (A) 1 %; HCT 44.7 % (39.0-53.0); Lymphocytes # (A) 1.4 k/uL (1.0-4.8); Lymphocytes % (A) 12 %; MCH 31.1 pg (25.0-35.0); MCHC 33.6 g/dL (31.0-37.0); MCV 92.6 fL (80.0-100.0); Mean Platelet Volume 9.5; Monocytes # (A) 0.6 k/uL (0-1.0); Monocytes % (A) 6 %; Neutrophils # (A) 8.8 k/uL (1.3-7.7); Neutrophils % (A) 79 %; Platelet Count 188 k/uL (150-450); RBC 4.83 m/uL (4.30-5.90); RDW 13.1 % (11.5-15.5); WBC 11.1 k/uL (3.8-10.6)
[2024-07-20] MEDS: LABETALOL 5 MG/ML VIAL MDV IVP STA (01:00)
[2024-07-20 01:06] LABS: INR 0.9 (<1.2); Partial Thromboplastin Time 24.8 sec (22.0-30.0)
[2024-07-20 01:08] LABS: ALT 15 U/L (4-49); AST 20 U/L (17-59); African American GFR (CKD) 52 (>60 ml/min/1.73 sqM); Albumin 4.5 g/dL (3.5-5.0); Alkaline Phosphatase 101 U/L (38-126); Anion Gap 10 mmol/L; Blood Urea Nitrogen 21 mg/dL (9-20); Calcium 8.8 mg/dL (8.4-10.2); Carbon Dioxide 21 mmol/L (22-30); Chloride 107 mmol/L (98-107); Glucose 129 mg/dL (74-99); Magnesium 1.8 mg/dL (1.6-2.3); Non-African American GFR(CKD) 45 (>60 ml/min/1.73 sqM); Phosphorus 3.5 mg/dL (2.5-4.5); Potassium 4.2 mmol/L (3.5-5.1); Sodium 138 mmol/L (137-145); Total Bilirubin 0.7 mg/dL (0.2-1.3)
[2024-07-20] MEDS: cloNIDine HCL 0.2 MG TAB PO STA (01:20)
[2024-07-20] MEDS: SODIUM CHLORIDE 0.9% 500 ML 500 ML IV STA ×2 (02:29→02:31)
[2024-07-20] MEDS: hydrALAZINE HCL 20 MG/ML 1 ML VIAL IVP STA (02:30)
[2024-07-20] MEDS: LORazepam 2 MG/ML INJ IV STA (02:49)
--- NOTE | 2024-07-20 04:04 | XR ---
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 Pt also noted to be hypertensive per ems TECHNIQUE: Frontal view of the chest. COMPARISON: 08/27/19 FINDINGS: Lungs: Right lung is slightly underinflated. No consolidation. Pleural space: No detectable pneumothorax. Mediastinum: Unremarkable. Normal mediastinal contour. Bones/joints: Moderate lower thoracic scoliosis convexed to the left. IMPRESSION: No acute findings
[2024-07-20 05:33] VITALS: BP 117/85; PULSE 95; RESP 16
== END 2024-07-20 05:42 | disposition home or self-care (01) ==
LOC: EC 00:19
DX: R00.2 Palpitations (principal); I16.0 Hypertensive urgency; F41.9 Anxiety disorder, unspecified; Z87.891 Personal history of nicotine dependence; Z88.1 Allergy status to other antibiotic agents; Z88.8 Allergy status to other drugs, medicaments and biological substances; Z88.0 Allergy status to penicillin
CPT/HCPCS: 99285; 96374; 96375 ×2; 96361; 36415; 93005; 80053; 83605; 83735; 84100; 84484; 85025; 85610; 85730; 71045; J2060; J0360; J1920

== ENCOUNTER 2024-11-25 14:45 | Observation (INO) | payer MEDICARE ==
--- NOTE | 2024-11-25 15:26 | ED ---
General Adult HPI - General Source: patient, RN notes reviewed Mode of arrival: ambulatory Limitations: no limitations <Ana Holden - Last Filed: 11/25/24 15:24> - General Source: patient, RN notes reviewed, old records reviewed Mode of arrival: ambulatory Limitations: no limitations - History of Present Illness -: unknown Radiation: non-radiation Severity scale (1-10): 0 Improves with: none Worsens with: none Associated Symptoms: denies other symptoms (Patient is asymptomatic) <Carlo Cramer - Last Filed: 12/02/24 16:16> - General Chief complaint: Recheck/Abnormal Lab/Rx Stated complaint: [facility] Time Seen by Provider: 11/25/24 15:01 - History of Present Illness Initial comments: Quick [id number] male with history of hypertension presented to the emergency department with complaint of hypertension. Patient was at the [facility] afternoon and is reported that his blood pressure was very elevated. Denies current chest pain. Endorses mild heart palpitations. States that he has just taken a half dose of his prescribed amlodipine. (Ana Holden) This is a 79-year-old male from the [facility] today with severely elevated blood pressure. Patient does admit that he sometimes probably does not take his blood pressure medications as prescribed as he is on 3 medications for blood pressure and that today he only took amlodipine. Patient is on Catapres is one of his daily medications twice a day and he does state that he did not take (Carlo Cramer) - Related Data Home Medications Medication Instructions Recorded Confirmed atenoloL [Tenormin] 50 mg PO BID 07/04/17 11/25/24 Fluticasone Nasal [place] [Flonase 1 spray EA NOSTRIL BID PRN 07/26/19 11/25/24 Nasal [place]] cloNIDine HCL [Catapres] 0.1 mg PO BID 07/26/19 11/25/24 Ketoconazole 2% Cream [Nizoral 2%] 1 applic TOPICAL QID PRN 11/25/24 11/25/24 LORazepam 1 mg PO TID PRN 11/25/24 11/25/24 Previous Rx's Medication Instructions Recorded Spironolactone [Aldactone] 25 mg PO DAILY 30 Days #30 tab 11/30/24 carvediloL [Coreg*] 12.5 mg PO BID-W/MEALS 30 Days #30 11/30/24 tab Allergies Allergy/AdvReac Type Severity Reaction Status Date / Time amoxicillin Allergy Unknown Verified 11/25/24 19:43 cephalexin Allergy Unknown Verified 11/25/24 19:43 ciprofloxacin [From Cipro] Allergy Unknown Verified 11/25/24 19:43 doxazosin Allergy Unknown Verified 11/25/24 19:43 doxycycline Allergy Unknown Verified 11/25/24 19:43 epinephrine Allergy Unknown Verified 11/25/24 19:43 losartan Allergy Unknown Verified 11/25/24 19:43 methylprednisolone Allergy Unknown Verified 11/25/24 19:43 Review of Systems ROS Other: All systems not noted in ROS Statement are negative. <Ana Hodlen - Last Filed: 11/25/24 15:24> ROS Other: All systems not noted in ROS Statement are negative. <Carlo Cramer - Last Filed: 12/02/24 16:16> ROS Statement: Those systems with pertinent positive or pertinent negative responses have been documented in the HPI. Past Medical History Past Medical History: Hypertension, Renal Disease, Thyroid Disorder Additional Past Medical History / Comment(s): Pt states he is unable to urinate- he self caths 6-8 times a day-states he doesn't know the exact reason why he cannot urinate, renal disease and pt states GFR has been around 48, UTIs, cervical disc disease, hypothyroid, upper abdominal pain 2 weeks ago, bilateral tinnitis, headaches, sinusitis. History of Any Multi-Drug Resistant Organisms: None Reported Past Surgical History: No Surgical Hx Reported Additional Past Surgical History / Comment(s): colonoscopy-normal Past Anesthesia/Blood Transfusion Reactions: No Reported Reaction Past Psychological History: Anxiety, Depression, Panic Disorder Smoking Status: Former smoker Past Alcohol Use History: None Reported Past Drug Use History: None Reported - Past Family History Father Family Medical History: No Reported History, Cancer (colon Cancer) Additional Family Medical History / Comment(s): Father was healthy. He lived to be 82 yrs. old. Mother Family Medical History: CVA/TIA, Hypertension Additional Family Medical History / Comment(s): Mother had mental health problems. She lived to be 80yrs old. Son(s) Family Medical History: Coronary Artery Disease (CAD) (One son secondary to acute [place] at age 45) Additional Family Medical History / Comment(s): Patient does not have any brothers or sisters, no daughters <Asim Holdenoe - Last Filed: 11/25/24 15:24> General Exam Limitations: no limitations <Asim Holdenoe - Last Filed: 11/25/24 15:24> General appearance: alert, in no apparent distress Head exam: Present: atraumatic, normocephalic, normal inspection Eye exam: Present: normal appearance, PERRL, EOMI. Absent: scleral icterus, conjunctival injection, periorbital swelling ENT exam: Present: normal exam, mucous membranes moist Neck exam: Present: normal inspection. Absent: tenderness, meningismus, lymphadenopathy Respiratory exam: Present: normal lung sounds bilaterally. Absent: respiratory distress, wheezes, rales, rhonchi, stridor Cardiovascular Exam: Present: regular rate, normal rhythm, normal heart sounds. Absent: systolic murmur, diastolic murmur, rubs, gallop, clicks GI/Abdominal exam: Present: soft, normal bowel sounds. Absent: distended, tenderness, guarding, rebound, rigid Extremities exam: Present: normal inspection, full ROM, normal capillary refill. Absent: tenderness, pedal edema, joint swelling, calf tenderness Back exam: Present: normal inspection Neurological exam: Present: alert, oriented X3, CN II-XII intact Psychiatric exam: Present: normal affect, normal mood Skin exam: Present: warm, dry, intact, normal color. Absent: rash <Carlo Cramer - Last Filed: 12/02/24 16:16> - General Exam Comments Initial Comments: Visual Physical Exam Vital signs reviewed General: Well-appearing, nontoxic, no acute distress. Head: Normocephalic, atraumatic Eyes: PERRLA, EOMI ENT: Airway patent Chest: Nonlabored breathing Skin: No visual rash, normal skin tone Neuro: Alert and oriented 3 Musculoskeletal: No gross abnormalities (Stieler,Ana) Course <Carlo Cramer - Last Filed: 12/02/24 16:16> Vital Signs 11/25/24 11/25/24 11/25/24 14:59 18:00 18:07 Temperature 98 F 97.6 F Pulse Rate 72 68 Pulse Rate [ 75 Pulse Oximetery ] Respiratory 20 17 18 Rate Blood Pressure 239/109 193/123 Blood Pressure 186/99 [Right Arm] O2 Sat by Pulse 98 97 97 Oximetry 11/25/24 11/25/24 11/25/24 18:39 19:02 19:20 Temperature 98.2 F Pulse Rate 73 82 Pulse Rate [ Pulse Oximetery ] Respiratory 18 20 Rate Blood Pressure 198/129 201/132 199/113 Blood Pressure [Right Arm] O2 Sat by Pulse 98 98 Oximetry 11/25/24 11/25/24 11/25/24 19:30 20:00 20:45 Temperature Pulse Rate 80 84 82 Pulse Rate [ Pulse Oximetery ] Respiratory 20 20 20 Rate Blood Pressure 164/113 132/89 119/80 Blood Pressure [Right Arm] O2 Sat by Pulse 97 93 L 96 Oximetry 11/25/24 11/26/24 11/26/24 22:00 00:00 01:00 Temperature 98.1 F Pulse Rate 72 68 63 Pulse Rate [ Pulse Oximetery ] Respiratory 20 20 20 Rate Blood Pressure 108/70 159/101 141/85 Blood Pressure [Right Arm] O2 Sat by Pulse 97 98 94 L Oximetry 11/26/24 11/26/24 11/26/24 04:00 06:00 08:26 Temperature Pulse Rate 54 L 55 L 71 Pulse Rate [ Pulse Oximetery ] Respiratory 18 20 18 Rate Blood Pressure 122/73 109/67 188/106 Blood Pressure [Right Arm] O2 Sat by Pulse 95 96 94 L Oximetry 11/26/24 11/26/24 11/26/24 09:00 13:00 14:00 Temperature Pulse Rate 73 84 80 Pulse Rate [ Pulse Oximetery ] Respiratory 18 18 18 Rate Blood Pressure 169/97 162/119 162/93 Blood Pressure [Right Arm] O2 Sat by Pulse 96 97 96 Oximetry 11/26/24 11/26/24 11/26/24 15:00 16:17 17:02 Temperature Pulse Rate 78 Pulse Rate [ Pulse Oximetery ] Respiratory 18 Rate Blood Pressure 209/136 202/123 181/113 Blood Pressure [Right Arm] O2 Sat by Pulse 98 Oximetry 11/26/24 17:27 Temperature 97.3 F L Pulse Rate 79 Pulse Rate [ Pulse Oximetery ] Respiratory 18 Rate Blood Pressure 163/94 Blood Pressure [Right Arm] O2 Sat by Pulse 95 Oximetry - Reevaluation(s) Reevaluation #1: 11/25/24 19:25 Medical records reviewed (Carlo Cramer) Reevaluation #2: 11/25/24 19:25 Patient blood pressure difficult to control here in the ER given Catapres labetalol x 2 and hydralazine IV with improvement in blood pressure but still severely elevated and hypertensive urgency levels (Carlo Cramer) Reevaluation #3: 11/25/24 19:25 Patient informed of results and questions answered (Carlo Cramer) Reevaluation #4: Was pt. sent in by a medical professional or institution (, [facility], AUDIO VISUAL TECH, urgent care, hospital, or fpc...) When possible be specific @ -no Did you speak to anyone other than the patient for history (EMS, parent, family, police, friend...)? What history was obtained from this source @ -no Did you review nursing and triage notes (agree or disagree)? Why? @ -agree Are old charts reviewed (outside hosp., previous admission, EMS record, old EKG, old radiological studies, urgent care reports/EKG's, fpc records)? Report findings @ -yes Differential Diagnosis (chest pain, altered mental status, abdominal pain women, abdominal pain men, vaginal bleeding, weakness, fever, dyspnea, syncope, headache, dizziness, GI bleed, back pain, seizure, CVA, palpatations, mental health, musculoskeletal)? @ -prior EKG interpreted by me (3pts min.). @ -yes X-rays interpreted by me (1pt min.). @ -no CT interpreted by me (1pt min.). @ -no U/S interpreted by me (1pt. min.). @ -no What testing was considered but not performed or refused? (CT, X-rays, U/S, labs)? Why? @ -none What meds were considered but not given or refused? Why? @ -none Did you discuss the management of the patient with other professionals (professionals i.e. [facility] Lainez, AUDIO VISUAL TECH, lab, RT, psych nurse, clinical social work therapist, change number operator, teacher, disbursing officer, case finishing machine adjuster)? Give summary @ -no Was smoking cessation discussed for >3mins.? @ -no Was critical care preformed (if so, how long)? @ -no Were there social determinants of health that impacted care today? How? (Homelessness, low income, unemployed, alcoholism, drug addiction, transport ation, low edu. Level, literacy, decrease access to med. care, prison, rehab)? @ -none Was there de-escalation of care discussed even if they declined (Discuss DNR or withdrawal of care, Hospice)? DNR status @ -no What co-morbidities impacted this encounter? (DM, HTN, Smoking, COPD, CAD, Cancer, CVA, ARF, Chemo, Hep., AIDS, mental health diagnosis, sleep apnea, morbid obesity)? @ -none Was patient admitted / discharged? Hospital course, mention meds given and route, prescriptions, significant lab abnormalities, going to OR and other pertinent info. @ - 79 male will be admitted for hypertensive emergency without endorgan damage to severely elevated blood pressure without improvement in the ER with blood pressure medication Admitted hypertensive urgency uncontrolled Undiagnosed new problem with uncertain prognosis? @ -no Drug Therapy requiring intensive monitoring for toxicity (Heparin, Nitro, Insulin, Cardizem)? @ -no Were any procedures done? @ -no Diagnosis/symptom? @ - Acute, or Chronic, or Acute on Chronic? @ -Acute Uncomplicated (without systemic symptoms) or Complicated (systemic symptoms)? @ -Complicated Side effects of treatment? @ -no Exacerbation, Progression, or Severe Exacerbation? @ -exacerbation Poses a threat to life or bodily function? How? (Chest pain, [place], [place], pneumonia, PE, COPD, DKA, ARF, appy, cholecystitis, CVA, Diverticulitis, Homicidal, Suicidal, threat to staff... and all critical care pts) @ -yes severe (Carlo Cramer) - Consultations Consultation #1: Spoke with [facility] who agrees to admit this patient (Carlo Cramer) EKG Findings - EKG Comments: EKG Findings:: EKG is sinus 66 FL 210 QRS 94 QTc 409 - EKG Results: EKG: interpreted by ERMD <Carlo Cramer - Last Filed: 12/02/24 16:16> Medical Decision Making <Ana Holden - Last Filed: 11/25/24 15:24> - Lab Data Result diagrams: 11/26/24 09:12 11/30/24 05:01 - Radiology Data Radiology results: report reviewed (Chest x-ray is negative for acute disease), image reviewed <Carlo Cramer - Last Filed: 12/02/24 16:16> - Medical Decision Making I completed the quick note portion of this chart signed Ana Holden PA-C (Ana Holden) 79 male will be admitted for hypertensive emergency without endorgan damage to severely elevated blood pressure without improvement in the ER with blood pressure medication (Carlo Cramer) - Lab Data Lab Results 11/25/24 11/25/24 11/25/24 Range/Units 16:27 16:27 16:27 WBC 11.4 H (3.8-10.6) k/uL RBC 4.98 (4.30-5.90) m/uL Hgb 15.3 (13.0-17.5) gm/dL Hct 44.8 (39.0-53.0) % MCV 90.0 (80.0-100.0) fL MCH 30.8 (25.0-35.0) pg MCHC 34.3 (31.0-37.0) g/dL RDW 12.5 (11.5-15.5) % Plt Count 200 (150-450) k/uL MPV 9.5 Neutrophils % 80 % Lymphocytes % 12 % Monocytes % 5 % Eosinophils % 1 % Basophils % 1 % Neutrophils # 9.1 H (1.3-7.7) k/uL Lymphocytes # 1.4 (1.0-4.8) k/uL Monocytes # 0.5 (0-1.0) k/uL Eosinophils # 0.1 (0-0.7) k/uL Basophils # 0.1 (0-0.2) k/uL Sodium 138 (137-145) mmol/L Potassium 3.7 (3.5-5.1) mmol/L Chloride 100 (98-107) mmol/L Carbon Dioxide 27 (22-30) mmol/L Anion Gap 11 mmol/L BUN 19 (9-20) mg/dL Creatinine 1.28 H (0.66-1.25) mg/dL Est GFR (CKD-EPI)AfAm 62 (>60 ml/min/1.73 sqM) Est GFR (CKD-EPI)NonAf 53 (>60 ml/min/1.73 sqM) Glucose 150 H (74-99) mg/dL Calcium 9.1 (8.4-10.2) mg/dL Magnesium 1.9 (1.6-2.3) mg/dL Total Bilirubin 0.7 (0.2-1.3) mg/dL AST 20 (17-59) U/L ALT 15 (4-49) U/L Alkaline Phosphatase 106 (38-126) U/L Troponin I <0.012 (0.000-0.034) ng/mL Total Protein 7.3 (6.3-8.2) g/dL Albumin 4.7 (3.5-5.0) g/dL Disposition <Ana Holden - Last Filed: 11/25/24 15:24> Is patient prescribed a controlled substance at d/c from ED?: No Time of Disposition: 19:00 <Carlo Cramer - Last Filed: 12/02/24 16:16> Clinical Impression: Hypertensive urgency Disposition: ADMITTED IP TO THIS HOSP Condition: Fair
[2024-11-25 16:41] LABS: Basophils # (A) 0.1 k/uL (0-0.2); Basophils % (A) 1 %; Eosinophils # (A) 0.1 k/uL (0-0.7); Eosinophils % (A) 1 %; HCT 44.8 % (39.0-53.0); HGB 15.3 gm/dL (13.0-17.5); Lymphocytes # (A) 1.4 k/uL (1.0-4.8); Lymphocytes % (A) 12 %; MCH 30.8 pg (25.0-35.0); MCHC 34.3 g/dL (31.0-37.0); Mean Platelet Volume 9.5; Monocytes # (A) 0.5 k/uL (0-1.0); Monocytes % (A) 5 %; Neutrophils # (A) 9.1 k/uL (1.3-7.7); Neutrophils % (A) 80 %; Platelet Count 200 k/uL (150-450); RBC 4.98 m/uL (4.30-5.90); RDW 12.5 % (11.5-15.5); WBC 11.4 k/uL (3.8-10.6)
[2024-11-25 16:55] LABS: ALT 15 U/L (4-49); AST 20 U/L (17-59); African American GFR (CKD) 62 (>60 ml/min/1.73 sqM); Albumin 4.7 g/dL (3.5-5.0); Alkaline Phosphatase 106 U/L (38-126); Anion Gap 11 mmol/L; Blood Urea Nitrogen 19 mg/dL (9-20); Calcium 9.1 mg/dL (8.4-10.2); Carbon Dioxide 27 mmol/L (22-30); Chloride 100 mmol/L (98-107); Glucose 150 mg/dL (74-99); Magnesium 1.9 mg/dL (1.6-2.3); Non-African American GFR(CKD) 53 (>60 ml/min/1.73 sqM); Potassium 3.7 mmol/L (3.5-5.1); Sodium 138 mmol/L (137-145); Total Bilirubin 0.7 mg/dL (0.2-1.3); Total Protein 7.3 g/dL (6.3-8.2)
[2024-11-25] MEDS: SODIUM CHLORIDE 0.9% 1,000 ML IV SCH ×2 (18:15→20:52)
[2024-11-25] MEDS: LABETALOL 5 MG/ML VIAL MDV IVP STA ×2 (18:17→19:37)
[2024-11-25] MEDS: cloNIDine HCL 0.1 MG TAB PO STA (18:41)
[2024-11-25] MEDS ORDERED: MORPHINE SULFATE 4 MG/ML SYRINGE IV PRN (20:27)
[2024-11-25] MEDS ORDERED: NALOXONE 0.4 MG/ML 1 ML VIAL IV PRN (20:27)
[2024-11-25] MEDS ORDERED: ONDANSETRON 4 MG/2 ML VIAL IVP PRN (20:27)
[2024-11-25] MEDS: hydrALAZINE HCL 20 MG/ML 1 ML VIAL IVP STA (20:28)
[2024-11-26] MEDS: cloNIDine 0.3 MG/24HR PATCH TRANSDERM SCH (01:13)
[2024-11-26] MEDS ORDERED: carvediloL 12.5 MG TAB PO SCH (08:30)
[2024-11-26] MEDS: carvediloL 6.25 MG TAB PO SCH (08:36)
[2024-11-26 09:33] LABS: Basophils % (A) 1 %; Eosinophils # (A) 0.2 k/uL (0-0.7); Eosinophils % (A) 3 %; HCT 40.5 % (39.0-53.0); HGB 13.7 gm/dL (13.0-17.5); Lymphocytes # (A) 1.3 k/uL (1.0-4.8); Lymphocytes % (A) 23 %; MCH 30.9 pg (25.0-35.0); MCHC 33.8 g/dL (31.0-37.0); MCV 91.4 fL (80.0-100.0); Mean Platelet Volume 9.2; Monocytes # (A) 0.3 k/uL (0-1.0); Monocytes % (A) 6 %; Neutrophils # (A) 3.8 k/uL (1.3-7.7); Neutrophils % (A) 66 %; Platelet Count 138 k/uL (150-450); RBC 4.43 m/uL (4.30-5.90); RDW 12.8 % (11.5-15.5); WBC 5.8 k/uL (3.8-10.6)
[2024-11-26 09:42] LABS: African American GFR (CKD) 64 (>60 ml/min/1.73 sqM); Anion Gap 8 mmol/L; Blood Urea Nitrogen 17 mg/dL (9-20); Calcium 8.6 mg/dL (8.4-10.2); Carbon Dioxide 26 mmol/L (22-30); Chloride 103 mmol/L (98-107); Glucose 186 mg/dL (74-99); Non-African American GFR(CKD) 56 (>60 ml/min/1.73 sqM); Potassium 3.4 mmol/L (3.5-5.1); Sodium 137 mmol/L (137-145)
[2024-11-26 10:55] LABS: T4, Free (Free Thyroxine) 0.74 ng/dL (0.78-2.19)
--- NOTE | 2024-11-26 11:29 | P.NPCON ---
History of Present Illness - Reason for Consult chronic renal failure, accelerated hypertension - History of Present Illness Reason for consultation: Chronic kidney disease and hypertension History of present illness: Patient is a 79-year-old male seen in renal consultation for chronic kidney disease and hypertension. Patient has chronic kidney disease stage IIIa with baseline creatinine near 1.3-1.4. Etiology is nephrosclerosis. GFR is at baseline. Patient came to the hospital due to hypertension. 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 He denies chest pain or shortness of breath. Patient states he does get palpitations in the morning but it resolves after he takes his antihypertensives. He denies any vomiting or diarrhea. Denies vision changes. No headaches. No edema. Has been voiding. No gross hematuria or dysuria. Patient is not sure if he has diabetes or not. Patient's blood pressure on admission was 239/109 and did drop to as low as 108/70 last night at 11 PM. This morning the systolic blood pressure has been in the range of 10 9-1 88. Patient states he does not take his home medications every day and misses them as he forgets. Vital signs are stable. General: The patient a no acute distress. HEENT: Head exam is unremarkable. LUNGS: No audible rhonchi or wheezes. HEART: Rate and Rhythm are regular. ABDOMEN: Nontender. EXTREMITITES: No edema. Past Medical History Past Medical History: Hypertension, Renal Disease, Thyroid Disorder Additional Past Medical History / Comment(s): Pt states he is unable to urinate- he self caths 6-8 times a day-states he doesn't know the exact reason why he cannot urinate, renal disease and pt states GFR has been around 48, UTIs, cervical disc disease, hypothyroid, upper abdominal pain 2 weeks ago, bilateral tinnitis, headaches, sinusitis. History of Any Multi-Drug Resistant Organisms: None Reported Past Surgical History: No Surgical Hx Reported Additional Past Surgical History / Comment(s): colonoscopy-normal Past Anesthesia/Blood Transfusion Reactions: No Reported Reaction Past Psychological History: Anxiety, Depression, Panic Disorder Smoking Status: Former smoker Past Alcohol Use History: None Reported Past Drug Use History: None Reported - Past Family History Father Family Medical History: No Reported History, Cancer (colon Cancer) Additional Family Medical History / Comment(s): Father was healthy. He lived to be 82 yrs. old. Mother Family Medical History: CVA/TIA, Hypertension Additional Family Medical History / Comment(s): Mother had mental health problems. She lived to be 80yrs old. Son(s) Family Medical History: Coronary Artery Disease (CAD) (One son secondary to acute [place] at age 45) Additional Family Medical History / Comment(s): Patient does not have any brothers or sisters, no daughters Medications and Allergies Home Medications Medication Instructions Recorded Confirmed Type atenoloL [Tenormin] 50 mg PO BID 07/04/17 11/25/24 History Fluticasone Nasal [place] [Flonase 1 spray EA NOSTRIL BID PRN 07/26/19 11/25/24 History Nasal [place]] amLODIPine [Norvasc] 5 mg PO DAILY 07/26/19 11/25/24 History cloNIDine HCL [Catapres] 0.1 mg PO BID 07/26/19 11/25/24 History Ketoconazole 2% Cream [Nizoral 2%] 1 applic TOPICAL QID PRN 11/25/24 11/25/24 History LORazepam 1 mg PO TID PRN 11/25/24 11/25/24 History Allergies Allergy/AdvReac Type Severity Reaction Status Date / Time amoxicillin Allergy Unknown Verified 11/25/24 19:43 cephalexin Allergy Unknown Verified 11/25/24 19:43 ciprofloxacin [From Cipro] Allergy Unknown Verified 11/25/24 19:43 doxazosin Allergy Unknown Verified 11/25/24 19:43 doxycycline Allergy Unknown Verified 11/25/24 19:43 epinephrine Allergy Unknown Verified 11/25/24 19:43 losartan Allergy Unknown Verified 11/25/24 19:43 methylprednisolone Allergy Unknown Verified 11/25/24 19:43 Physical Exam Vitals: Vital Signs Temp Pulse Resp BP Pulse Ox 11/26/24 09:00 73 18 169/97 96 11/26/24 08:26 71 18 188/106 94 L 11/26/24 06:00 55 L 20 109/67 96 11/26/24 04:00 54 L 18 122/73 95 11/26/24 01:00 63 20 141/85 94 L 11/26/24 00:00 98.1 F 68 20 159/101 98 11/25/24 22:00 72 20 108/70 97 11/25/24 20:45 82 20 119/80 96 11/25/24 20:00 84 20 132/89 93 L 11/25/24 19:30 80 20 164/113 97 11/25/24 19:20 98.2 F 82 20 199/113 98 11/25/24 19:02 201/132 11/25/24 18:39 73 18 198/129 98 11/25/24 18:07 68 18 193/123 97 11/25/24 14:59 98 F 72 20 239/109 98 Intake and Output 11/25/24 11/26/24 11/26/24 22:59 06:59 14:59 Output Total 400 Balance -400 Output: Urine 400 Results - Lab Results Most recent lab results Calcium 8.6 mg/dL (8.4-10.2) 11/26/24 09:12 Magnesium 1.9 mg/dL (1.6-2.3) 11/25/24 16:27 11/26/24 09:12 11/26/24 09:12 Assessment and Plan Plan: Assessment: 1. Chronic kidney disease stage IIIa with baseline creatinine 1.3-1.5 secondary to nephrosclerosis. 2. Hypertension with chronic kidney disease. Partially due to noncompliance with home antihypertensives. Labile. 3. Mild hypokalemia from poor intake versus high aldosterone state. Plan: Hep-Lock IV fluids. Encouraged oral intake. Replace potassium. Maintain Coreg. Add scheduled hydralazine 25 mg 3 times daily. Hold for systolic blood pressure less than 120. Patient refusing to take amlodipine at this time. Check a renin and aldosterone levels. Check plasma metanephrines. Check renal duplex ultrasound. Check a.m. cortisol level Thank you for the consultation. I will continue to follow the patient with you during his hospital stay.
[2024-11-26] MEDS: POTASSIUM CHLORIDE ER 20 MEQ TAB.ER PO STA (12:15)
[2024-11-26] MEDS: hydrALAZINE HCL 25 MG TAB PO SCH (12:16)
[2024-11-26] MEDS: hydrALAZINE HCL 20 MG/ML 1 ML VIAL IVP PRN (17:06)
[2024-11-27] MEDS: LORazepam 1 MG TAB PO PRN (00:02)
[2024-11-27] MEDS: ACETAMINOPHEN TAB 325 MG TAB PO PRN (03:30)
[2024-11-27] MEDS: CALCIUM CARBONATE 500 MG CHEWABLE PO PRN (05:39)
--- NOTE | 2024-11-27 07:55 | US ---
EXAMINATION TYPE: US renal artery duplex complet DATE OF EXAM: 11/27/2024 COMPARISON: CT abdomen and pelvis 05/02/2013, renal ultrasound 04/19/2013 CLINICAL INDICATION: Male, 79 years old with history of htn, ckd; HTN, known left atrophic renal TECHNIQUE: Grayscale, color Doppler and spectral Doppler imaging of the bilateral renal arteries and kidneys. FINDINGS: MEASUREMENTS: RENAL SIZE: Right Kidney: 11.1 x 5.2 x 5.8cm Left Kidney: not seen - atrophic Abd Aorta: 1.7 x 1.7cm Live Source Operator Notes: Attempted study, patient has too much bowel gas, vascularity to right renal seeme d very limited. Test was not diagnostic. No visualized abdominal aortic aneurysm. Color flow is identified within the abdominal aorta. Aortic peak systolic velocity of 53.2 cm/s. The visualized portions of the right kidney demonstrates no hydr onephrosis, solid mass or shadowing calculus. Minimal vascularity seen within the right kidney. The r enal artery and vein are not seen due to overlying bowel gas. The left kidney is not visualized due t o atrophy. IMPRESSION: Limited examination due to overlying bowel gas. Limited vascularity to the right kidney with nondiagnostic evaluation for renal artery stenosis as de scribed above. Consider further evaluation with CTA or MRA. [facility], , 11/27/2024 7:53 AM
[2024-11-27] MEDS: atenoloL 50 MG TAB PO SCH (08:40)
[2024-11-27] MEDS: cloNIDine HCL 0.1 MG TAB PO SCH (08:43)
[2024-11-27] MEDS ORDERED: FLUTICASONE NASAL 50MCG/SPRAY 16GM BTL EA NOSTRIL PRN (09:00)
[2024-11-27] MEDS ORDERED: CLOTRIMAZOLE 1% CREAM 30 GM TUBE TOPICAL PRN (09:00)
--- NOTE | 2024-11-27 10:56 | P.PN ---
Subjective Patient is seen in follow-up for chronic kidney disease and hypertension. Renal function stable. Blood pressure fairly well-controlled this morning. Oral intake is good. Denies chest pain or shortness of breath. Has been doing self catheterizations. Vital signs are stable. General: No acute distress. HEENT: Head exam is unremarkable. LUNGS: No audible rhonchi or wheezes. HEART: Rate and Rhythm are regular. ABDOMEN: Nontender. EXTREMITITES: No edema. Objective - Vital Signs Vital signs: Vital Signs Temp 97.9 F 11/27/24 09:47 Pulse 101 H 11/27/24 09:47 Resp 17 11/27/24 09:47 BP 136/82 11/27/24 09:47 Pulse Ox 98 11/27/24 09:47 FiO2 Intake & Output 11/26/24 11/27/24 11/27/24 18:59 06:59 18:59 Intake Total 118 Output Total 1800 Balance -1800 118 Weight 70.307 kg Intake: Oral 118 Output: Urine 1800 Other: Voiding Method Self-Catheterization Self-Catheterization # Voids 2 2 - Labs CBC & Chem 7: 11/26/24 09:12 11/26/24 09:12 Labs: Abnormal Lab Results - Last 24 Hours (Table) 11/26/24 Range/Units 09:12 Free T4 0.74 L (0.78-2.19) ng/dL Assessment and Plan Plan: Assessment: 1. Chronic kidney disease stage IIIa with baseline creatinine 1.3-1.5 secondary to nephrosclerosis/ischemic nephropathy. GFR at baseline. 2. Hypertension with chronic kidney disease. Partially due to noncompliance with home antihypertensives. Better controlled this morning. TSH slightly high at 5.9. No clear evidence of renal artery stenosis on duplex ultrasound. However left kidney noted to be atrophic concerning for ischemic nephropathy. 3. Mild hypokalemia from poor intake versus high aldosterone state. 4. Chronic urinary retention. Patient follows with urology outpatient. Performing self catheterizations. Plan: Off IV fluids. Encouraged oral intake. Replace potassium. Maintain Coreg. Patient refusing to take amlodipine at this time. Allergic to losartan. Follow-up renin and aldosterone levels. Follow-up plasma metanephrines. Follow-up a.m. cortisol level Follow-up outpatient 1 week postdischarge.
[2024-11-27 11:04] LABS: BUN/Creat Ratio 13.23 Ratio (12.00-20.00); Blood Urea Nitrogen 17.2 mg/dL (9.0-27.0); Calcium 9.4 mg/dL (8.7-10.3); Chloride 103 mmol/L (96-109); Glucose 161 mg/dL (70-110); Magnesium 1.7 mg/dL (1.5-2.4); Potassium 3.6 mmol/L (3.5-5.5); Sodium 139 mmol/L (135-145)
[2024-11-27] MEDS: POTASSIUM CHLORIDE ER 20 MEQ TAB.ER PO STA (12:17)
[2024-11-28 08:38] LABS: BUN/Creat Ratio 16.75 Ratio (12.00-20.00); Blood Urea Nitrogen 26.8 mg/dL (9.0-27.0); Carbon Dioxide 21.9 mmol/L (21.6-31.8); Chloride 103 mmol/L (96-109); Glucose 147 mg/dL (70-110); Magnesium 1.8 mg/dL (1.5-2.4); Potassium 3.9 mmol/L (3.5-5.5); Sodium 137 mmol/L (135-145)
--- NOTE | 2024-11-28 10:47 | P.PN ---
Subjective Patient is seen in follow-up for chronic kidney disease and hypertension. Renal function worse today. Blood pressure high this morning. Oral intake is good. Denies chest pain or shortness of breath. Has been doing self catheterizations. Vital signs are stable. General: No acute distress. HEENT: Head exam is unremarkable. LUNGS: No audible rhonchi or wheezes. HEART: Rate and Rhythm are regular. ABDOMEN: Nontender. EXTREMITITES: No edema. Objective - Vital Signs Vital signs: Vital Signs Temp 97.8 F 11/28/24 07:00 Pulse 71 11/28/24 10:27 Resp 20 11/28/24 10:27 BP 152/90 11/28/24 10:27 Pulse Ox 98 11/28/24 10:27 FiO2 Intake & Output 11/27/24 11/28/24 11/28/24 18:59 06:59 18:59 Intake Total 236 236 Balance 236 236 Intake: Oral 236 236 Other: Voiding Method Self-Catheterization Self-Catheterization Self-Catheterization # Voids 1 1 # Bowel Movements 1 - Labs CBC & Chem 7: 11/26/24 09:12 11/28/24 05:53 Labs: Abnormal Lab Results - Last 24 Hours (Table) 11/27/24 11/28/24 Range/Units 03:59 05:53 Carbon Dioxide 19.0 L (21.6-31.8) mmol/L Anion Gap 17.00 H 12.10 H (4.00-12.00) mmol/L Creatinine 1.6 H (0.6-1.5) mg/dL Est GFR (CKD-EPI) 56 L 44 L (>=60) Glucose 161 H 147 H (70-110) mg/dL Assessment and Plan Plan: Assessment: 1. Chronic kidney disease stage IIIa with baseline creatinine 1.3-1.5 secondary to nephrosclerosis/ischemic nephropathy. GFR near baseline. 2. Hypertension with chronic kidney disease. Partially due to noncompliance with home antihypertensives. TSH slightly high at 5.9. Cortisol level not high. No clear evidence of renal artery stenosis on duplex ultrasound. However left kidney noted to be atrophic concerning for ischemic nephropathy. 3. Mild hypokalemia from poor intake versus high aldosterone state. Replaced. Improved. 4. Chronic urinary retention. Patient follows with urology outpatient. Performing self catheterizations. Plan: Encouraged oral intake. Currently on Coreg, clonidine and atenolol. Patient refused to take amlodipine. Allergic to losartan. Stop hydralazine. Add Aldactone. Maintain as needed hydralazine for now. Follow-up renin and aldosterone levels. Follow-up plasma metanephrines. Check UA. Follow-up outpatient 1 week postdischarge.
[2024-11-28] MEDS: SPIRONOLACTONE 25 MG TAB PO SCH (12:26)
[2024-11-28 13:50] LABS: Amorphous Sediment,Urine Rare /hpf; Appearance,Urine Clear (Clear); Bacteria,Urine Many /hpf; Bilirubin,Urine Negative (Negative); Blood,Urine Negative (Negative); Color,Urine Colorless; Glucose,Urine (UA) Negative (Negative); Ketones,Urine Negative (Negative); Leukocyte Esterase,Urine Large (Negative); Mucus,Urine Rare /hpf; Nitrite,Urine Negative (Negative); PH, Urine 5.5 (5.0-8.0); Protein,Urine Negative (Negative); RBC,Urine 1 /hpf (0-5); Specific Gravity,Urine 1.008 (1.001-1.035); Squamous Epithelial Cell,Urine 1 /hpf (0-4); Urobilinogen,Urine <2.0 mg/dL (<2.0); WBC,Urine 33 /hpf (0-5)
[2024-11-28] MEDS ORDERED: hydrALAZINE HCL 50 MG TAB PO SCH (16:00)
[2024-11-29 08:27] LABS: BUN/Creat Ratio 17.64 Ratio (12.00-20.00); Blood Urea Nitrogen 24.7 mg/dL (9.0-27.0); Chloride 104 mmol/L (96-109); Glucose 177 mg/dL (70-110); Magnesium 1.9 mg/dL (1.5-2.4); Potassium 4.1 mmol/L (3.5-5.5); Sodium 138 mmol/L (135-145)
[2024-11-29 08:28] LABS: Carbon Dioxide 21.3 mmol/L (21.6-31.8)
--- NOTE | 2024-11-29 10:35 | P.PN ---
Subjective Patient is seen in follow-up for chronic kidney disease and hypertension. Renal function slightly better today. Blood pressures still elevated. Patient states he was quite anxious last night. Oral intake is good. Denies chest pain or shortness of breath. Has been doing self catheterizations. Vital signs are stable. General: No acute distress. HEENT: Head exam is unremarkable. LUNGS: No audible rhonchi or wheezes. HEART: Rate and Rhythm are regular. ABDOMEN: Nontender. EXTREMITITES: No edema. Objective - Vital Signs Vital signs: Vital Signs Temp 97.9 F 11/29/24 09:00 Pulse 72 11/29/24 09:00 Resp 16 11/29/24 09:00 BP 150/81 11/29/24 09:00 Pulse Ox 96 11/29/24 09:00 FiO2 Intake & Output 11/28/24 11/29/24 11/29/24 18:59 06:59 18:59 Intake Total 236 118 Output Total 580 1200 Balance -344 -1200 118 Intake: Oral 236 118 Output: Urine 580 1200 Other: Voiding Method Urinal Self-Catheterization Self-Catheterization Self-Catheterization - Labs CBC & Chem 7: 11/26/24 09:12 11/29/24 05:17 Labs: Abnormal Lab Results - Last 24 Hours (Table) 11/28/24 11/29/24 Range/Units 13:25 05:17 Carbon Dioxide 21.3 L (21.6-31.8) mmol/L Anion Gap 12.70 H (4.00-12.00) mmol/L Est GFR (CKD-EPI) 51 L (>=60) Glucose 177 H (70-110) mg/dL Ur Leukocyte Esterase Large H (Negative) Urine WBC 33 H (0-5) /hpf Amorphous Sediment Rare H (None) /hpf Urine Bacteria Many H (None) /hpf Urine Mucus Rare H (None) /hpf Assessment and Plan Plan: Assessment: 1. Chronic kidney disease stage IIIa with baseline creatinine 1.3-1.5 secondary to nephrosclerosis/ischemic nephropathy. GFR near baseline. UA benign. 2. Hypertension with chronic kidney disease. Partially due to noncompliance with home antihypertensives. TSH slightly high at 5.9. Cortisol level not high. No clear evidence of renal artery stenosis on duplex ultrasound. However left kidney noted to be atrophic concerning for ischemic nephropathy. 3. Mild hypokalemia from poor intake versus high aldosterone state. Replaced. Improved. 4. Chronic urinary retention. Patient follows with urology outpatient. Performing self catheterizations. Plan: Encouraged oral intake. Currently on Coreg, clonidine. Aldactone added November 28, 2024. Increased dose of Coreg. Check orthostatic vital signs. Patient refused to take amlodipine. Allergic to losartan. Maintain as needed hydralazine for now. Follow-up renin and aldosterone levels. Follow-up plasma metanephrines. Follow-up outpatient 1 week postdischarge.
[2024-11-29] MEDS: cloNIDine HCL 0.1 MG TAB PO SCH (15:52)
--- NOTE | 2024-11-29 17:48 | P.HPIM ---
History of Present Illness H&P Date: 11/27/24 Chief Complaint: Uncontrolled hypertension/blurred vision 79-year-old male with history of hypertension, hypothyroidism, chronic kidney disease, presented to the emergency department with complaint of hypertension. Patient was at the [employer] afternoon and is reported that his blood pressure was very elevated. Denies current chest pain. Endorses mild heart palpitations. States that he has just taken a half dose of his prescribed amlodipine. Patient's blood pressure on admission was 239/109 and did drop to as low as 108/70 last night at 11 PM. This morning the systolic blood pressure has been in the range of 10 9-1 88. Patient states he does not take his home medications every day and misses them as he forgets. Blood work reveals WBC of 11.4, hemoglobin of 15.3 and platelet count of 200, sodium 138, potassium 3.7, BUNs/creatinine of 19/1.28, blood glucose of 186, TSH elevated at 5.9 with free T4 of 0.74 Review of Systems REVIEW OF SYSTEMS: CONSTITUTIONAL: No fever, no malaise, no fatigue. HEENT: No recent visual problems or hearing problems. Denied any sore throat. CARDIOVASCULAR: No chest pain, orthopnea, PND, no palpitations, no syncope. PULMONARY: No shortness of breath, no cough, no hemoptysis. GASTROINTESTINAL: No diarrhea, no nausea, no vomiting, no abdominal pain. NEUROLOGICAL: No headaches, no weakness, no numbness. HEMATOLOGICAL: Denies any bleeding or petechiae. GENITOURINARY: Denies any burning micturition, frequency, or urgency. MUSCULOSKELETAL/RHEUMATOLOGICAL: Denies any joint pain, swelling, or any muscle pain. ENDOCRINE: Denies any polyuria or polydipsia. The rest of the 14-point review of systems is negative. Past Medical History Past Medical History: Hypertension, Renal Disease, Thyroid Disorder Additional Past Medical History / Comment(s): Pt states he is unable to urinate- he self caths 6-8 times a day r/t bladder malfunction, renal disease and pt states GFR has been around 48, UTIs, cervical disc disease, hypothyroid, upper abdominal pain 2 weeks ago, bilateral tinnitis, headaches, sinusitis. History of Any Multi-Drug Resistant Organisms: None Reported Past Surgical History: No Surgical Hx Reported Additional Past Surgical History / Comment(s): colonoscopy-normal Past Anesthesia/Blood Transfusion Reactions: No Reported Reaction Past Psychological History: Anxiety, Depression, Panic Disorder Additional Psychological History / Comment(s): Pt resides alone. He is independent. He self caths and gets his supply thru [employer] mail order. Pt is wearing a tether on his L ankle. He did not discuss reason for tether. Smoking Status: Former smoker Past Alcohol Use History: None Reported Additional Past Alcohol Use History / Comment(s): Pt started smoking in 10 and quit in 1965. He used to drink heavy when a teen but has not drank in years. Past Drug Use History: None Reported - Past Family History Father Family Medical History: No Reported History, Cancer Additional Family Medical History / Comment(s): Father was healthy. He lived to be 82 yrs. old. Mother Family Medical History: CVA/TIA, Hypertension Additional Family Medical History / Comment(s): Mother had mental health problems. She lived to be 80yrs old. Son(s) Family Medical History: Coronary Artery Disease (CAD) Additional Family Medical History / Comment(s): Patient does not have any brothers or sisters, no daughters Medications and Allergies Home Medications Medication Instructions Recorded Confirmed Type atenoloL [Tenormin] 50 mg PO BID 07/04/17 11/25/24 History Fluticasone Nasal [place] [Flonase 1 spray EA NOSTRIL BID PRN 07/26/19 11/25/24 History Nasal [place]] amLODIPine [Norvasc] 5 mg PO DAILY 07/26/19 11/25/24 History cloNIDine HCL [Catapres] 0.1 mg PO BID 07/26/19 11/25/24 History Ketoconazole 2% Cream [Nizoral 2%] 1 applic TOPICAL QID PRN 11/25/24 11/25/24 History LORazepam 1 mg PO TID PRN 11/25/24 11/25/24 History Allergies Allergy/AdvReac Type Severity Reaction Status Date / Time amoxicillin Allergy Unknown Verified 11/25/24 19:43 cephalexin Allergy Unknown Verified 11/25/24 19:43 ciprofloxacin [From Cipro] Allergy Unknown Verified 11/25/24 19:43 doxazosin Allergy Unknown Verified 11/25/24 19:43 doxycycline Allergy Unknown Verified 11/25/24 19:43 epinephrine Allergy Unknown Verified 11/25/24 19:43 losartan Allergy Unknown Verified 11/25/24 19:43 methylprednisolone Allergy Unknown Verified 11/25/24 19:43 Physical Exam Vitals: Vital Signs Temp Pulse Pulse Resp BP BP Pulse Ox 11/27/24 09:47 97.9 F 101 H 17 136/82 98 11/27/24 05:42 164/98 11/27/24 00:58 97.9 F 82 17 140/94 96 11/26/24 23:22 172/100 11/26/24 22:02 97.9 F 73 18 198/100 98 11/26/24 18:29 158/92 11/26/24 17:27 97.3 F L 79 18 163/94 95 11/26/24 17:02 181/113 11/26/24 16:17 78 18 202/123 98 Intake and Output 11/27/24 11/27/24 11/27/24 06:59 14:59 22:59 Intake Total 118 Balance 118 Intake: Oral 118 Other: Voiding Method Self-Catheterization Self-Catheterization # Voids 2 1 Head exam: Present: atraumatic, normocephalic, normal inspection Eye exam: Present: normal appearance, PERRL, EOMI. Absent: scleral icterus, conjunctival injection, periorbital swelling ENT exam: Present: normal exam, mucous membranes moist Neck exam: Present: normal inspection. Absent: tenderness, meningismus, lymphadenopathy Respiratory exam: Present: normal lung sounds bilaterally. Absent: respiratory distress, wheezes, rales, rhonchi, stridor Cardiovascular Exam: Present: regular rate, normal rhythm, normal heart sounds. Absent: systolic murmur, diastolic murmur, rubs, gallop, clicks GI/Abdominal exam: Present: soft, normal bowel sounds. Absent: distended, t enderness, guarding, rebound, rigid Extremities exam: Present: normal inspection, full ROM, normal capillary refill. Absent: tenderness, pedal edema, joint swelling, calf tenderness Back exam: Present: normal inspection Neurological exam: Present: alert, oriented X3, CN II-XII intact Psychiatric exam: Present: normal affect, normal mood Skin exam: Present: warm, dry, intact, normal color. Absent: rash Results CBC & Chem 7: 11/26/24 09:12 11/29/24 05:17 Labs: Abnormal Lab Results - Last 24 Hours (Table) 11/27/24 Range/Units 03:59 Carbon Dioxide 19.0 L (21.6-31.8) mmol/L Anion Gap 17.00 H (4.00-12.00) mmol/L Est GFR (CKD-EPI) 56 L (>=60) Glucose 161 H (70-110) mg/dL Thrombosis Risk Factor Assmnt - Choose All That Apply Any of the Below Risk Factors Present?: No Other Risk Factors: Yes Each Risk Factor Represents 3 Points: Age 75 years or older Thrombosis Risk Factor Assessment Total Risk Factor Score: 3 Thrombosis Risk Factor Assessment Level: Moderate Risk Assessment and Plan Assessment: 1. Hypertensive urgency -Patient is supposed to be taking Norvasc and Catapres at home; patient however seems to be noncompliant with the medications and reports blood pressure medic ations make him dizzy and have blurred vision; patient educated on need for improved blood pressure control but remains adamant and continues to refuse treatment -Nephrology recommending to add hydralazine 25 mg 3 times daily; patient is refusing to take amlodipine at this time -- Renin and aldosterone levels are ordered; check plasma metanephrines; serum cortisol -Renal ultrasound is ordered 2. Hypokalemia; supplemented in ED; monitor electrolytes and make further recommendations 3. Hypothyroidism; patient has a TSH which is elevated at 5.9 with free T4 low at 0.74; patient refuses thyroid to be addressed; reports medications make him dizzy and lightheaded 4. Acute renal injury; creatinine elevated at 1.28; baseline creatinine is not known; nephrology is on board; we will monitor renal function electrolytes; avoid nephrotoxins and hypotension 5. Hyperglycemia; no history of diabetes; we will monitor Accu-Cheks before every meal and at bedtime and make further recommendations 6. Seasonal allergies; continue with 4 Flonase nasal sprays twice daily DVT prophylaxis; SCDs CODE STATUS; full code
--- NOTE | 2024-11-29 17:49 | P.PN ---
Subjective Progress Note Date: 11/28/24 79-year-old male with history of hypertension, hypothyroidism, chronic kidney disease, presented to the emergency department with complaint of hypertension. 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 Denies current chest pain. Endorses mild heart palpitations. States that he has just taken a half dose of his prescribed amlodipine. Patient's blood pressure on admission was 239/109 and did drop to as low as 108/70 last night at 11 PM. This morning the systolic blood pressure has been in the range of 10 9-1 88. Patient states he does not take his home medications every day and misses them as he forgets. Blood work reveals WBC of 11.4, hemoglobin of 15.3 and platelet count of 200, sodium 138, potassium 3.7, BUNs/creatinine of 19/1.28, blood glucose of 186, TSH elevated at 5.9 with free T4 of 0.74 Objective - Vital Signs Vital signs: Vital Signs Temp 98.3 F 11/28/24 12:22 Pulse 64 11/28/24 12:22 Resp 16 11/28/24 12:22 BP 177/87 11/28/24 12:22 Pulse Ox 97 11/28/24 12:22 FiO2 Intake & Output 11/27/24 11/28/24 11/28/24 18:59 06:59 18:59 Intake Total 236 236 Balance 236 236 Intake: Oral 236 236 Other: Voiding Method Self-Catheterization Self-Catheterization Self-Catheterization # Voids 1 1 # Bowel Movements 1 - Exam Head exam: Present: atraumatic, normocephalic, normal inspection Eye exam: Present: normal appearance, PERRL, EOMI. Absent: scleral icterus, conjunctival injection, periorbital swelling ENT exam: Present: normal exam, mucous membranes moist Neck exam: Present: normal inspection. Absent: tenderness, meningismus, lymphadenopathy Respiratory exam: Present: normal lung sounds bilaterally. Absent: respiratory distress, wheezes, rales, rhonchi, stridor Cardiovascular Exam: Present: regular rate, normal rhythm, normal heart sounds. Absent: systolic murmur, diastolic murmur, rubs, gallop, clicks GI/Abdominal exam: Present: soft, normal bowel sounds. Absent: distended, tenderness, guarding, rebound, rigid Extremities exam: Present: normal inspection, full ROM, normal capillary refill. Absent: tenderness, pedal edema, joint swelling, calf tenderness Back exam: Present: normal inspection Neurological exam: Present: alert, oriented X3, CN II-XII intact Psychiatric exam: Present: normal affect, normal mood Skin exam: Present: warm, dry, intact, normal color. Absent: rash - Labs CBC & Chem 7: 11/26/24 09:12 11/29/24 05:17 Labs: Abnormal Lab Results - Last 24 Hours (Table) 11/28/24 Range/Units 05:53 Anion Gap 12.10 H (4.00-12.00) mmol/L Creatinine 1.6 H (0.6-1.5) mg/dL Est GFR (CKD-EPI) 44 L (>=60) Glucose 147 H (70-110) mg/dL Assessment and Plan Assessment: 1. Hypertensive urgency -Patient is supposed to be taking Norvasc and Catapres at home; patient however seems to be noncompliant with the medications and reports blood pressure medications make him dizzy and have blurred vision; patient educated on need for improved blood pressure control but remains adamant and continues to refuse treatment -Nephrology recommending to add hydralazine 25 mg 3 times daily; patient is refusing to take amlodipine at this time -- Renin and aldosterone levels are ordered; check plasma metanephrines; serum cortisol -Renal ultrasound is ordered 2. Hypokalemia; supplemented in ED; monitor electrolytes and make further recommendations 3. Hypothyroidism; patient has a TSH which is elevated at 5.9 with free T4 low at 0.74; patient refuses thyroid to be addressed; reports medications make him dizzy and lightheaded 4. Acute renal injury; creatinine elevated at 1.28; baseline creatinine is not known; nephrology is on board; we will monitor renal function electrolytes; avoid nephrotoxins and hypotension 5. Hyperglycemia; no history of diabetes; we will monitor Accu-Cheks before every meal and at bedtime and make further recommendations 6. Seasonal allergies; continue with 4 Flonase nasal sprays twice daily DVT prophylaxis; SCDs CODE STATUS; full code
--- NOTE | 2024-11-29 17:51 | P.PN ---
Subjective Progress Note Date: 11/29/24 79-year-old male with history of hypertension, hypothyroidism, chronic kidney disease, presented to the emergency department with complaint of hypertension. 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 Denies current chest pain. Endorses mild heart palpitations. States that he has just taken a half dose of his prescribed amlodipine. Patient's blood pressure on admission was 239/109 and did drop to as low as 108/70 last night at 11 PM. This morning the systolic blood pressure has been in the range of 10 9-1 88. Patient states he does not take his home medications take and refuse medications day and misses them as he forgets. Blood work reveals WBC of 11.4, hemoglobin of 15.3 and platelet count of 200, sodium 138, potassium 3.7, BUNs/creatinine of 19/1.28, blood glucose of 186, TSH elevated at 5.9 with free T4 of 0.74 24-hour interval change 11/29/2024 Patient is seen and evaluated sitting up in bed; blood pressure continues to have wide fluctuations; patient continues to selectively take and refuse med ication --Multiple discussions with the patient for need to take medications but continues to remain adamant -Patient was discussed with nephrology-recommending psych evaluation -Psych consult has been placed -- Patient is agreeable to take Catapres most of the time; will increase Catapres to oh 3 times daily dose Objective - Vital Signs Vital signs: Vital Signs Temp 97.9 F 11/29/24 09:00 Pulse 82 11/29/24 11:31 Resp 16 11/29/24 09:00 BP 165/86 11/29/24 11:31 Pulse Ox 96 11/29/24 09:00 FiO2 Intake & Output 11/28/24 11/29/24 11/29/24 18:59 06:59 18:59 Intake Total 236 118 Output Total 580 1200 Balance -344 -1200 118 Intake: Oral 236 118 Output: Urine 580 1200 Other: Voiding Method Urinal Self-Catheterization Self-Catheterization Self-Catheterization - Exam Head exam: Present: atraumatic, normocephalic, normal inspection Eye exam: Present: normal appearance, PERRL, EOMI. Absent: scleral icterus, conjunctival injection, periorbital swelling ENT exam: Present: normal exam, mucous membranes moist Neck exam: Present: normal inspection. Absent: tenderness, meningismus, lymphadenopathy Respiratory exam: Present: normal lung sounds bilaterally. Absent: respiratory distress, wheezes, rales, rhonchi, stridor Cardiovascular Exam: Present: regular rate, normal rhythm, normal heart sounds. Absent: systolic murmur, diastolic murmur, rubs, gallop, clicks GI/Abdominal exam: Present: soft, normal bowel sounds. Absent: distended, tenderness, guarding, rebound, rigid Extremities exam: Present: normal inspection, full ROM, normal capillary refill. Absent: tenderness, pedal edema, joint swelling, calf tenderness Back exam: Present: normal inspection Neurological exam: Present: alert, oriented X3, CN II-XII intact Psychiatric exam: Present: normal affect, normal mood Skin exam: Present: warm, dry, intact, normal color. Absent: rash - Labs CBC & Chem 7: 11/26/24 09:12 11/29/24 05:17 Labs: Abnormal Lab Results - Last 24 Hours (Table) 11/28/24 11/29/24 Range/Units 13:25 05:17 Carbon Dioxide 21.3 L (21.6-31.8) mmol/L Anion Gap 12.70 H (4.00-12.00) mmol/L Est GFR (CKD-EPI) 51 L (>=60) Glucose 177 H (70-110) mg/dL Ur Leukocyte Esterase Large H (Negative) Urine WBC 33 H (0-5) /hpf Amorphous Sediment Rare H (None) /hpf Urine Bacteria Many H (None) /hpf Urine Mucus Rare H (None) /hpf Assessment and Plan Assessment: 1. Hypertensive urgency -Patient is supposed to be taking Norvasc and Catapres at home; patient however seems to be noncompliant with the medications and reports blood pressure medications make him dizzy and have blurred vision; patient educated on need for improved blood pressure control but remains adamant and continues to refuse treatment -Nephrology recommending to add hydralazine 25 mg 3 times daily; patient is refusing to take amlodipine at this time -- Renin and aldosterone levels are ordered; check plasma metanephrines; serum cortisol -Renal ultrasound is ordered 2. Hypokalemia; supplemented in ED; monitor electrolytes and make further recommendations 3. Hypothyroidism; patient has a TSH which is elevated at 5.9 with free T4 low at 0.74; patient refuses thyroid to be addressed; reports medications make him dizzy and lightheaded 4. Acute renal injury; creatinine elevated at 1.28; baseline creatinine is not known; nephrology is on board; we will monitor renal function electrolytes; avoid nephrotoxins and hypotension 5. Hyperglycemia; no history of diabetes; we will monitor Accu-Cheks before every meal and at bedtime and make further recommendations 6. Seasonal allergies; continue with 4 Flonase nasal sprays twice daily DVT prophylaxis; SCDs CODE STATUS; full code
[2024-11-29] MEDS: carvediloL 12.5 MG TAB PO SCH (18:20)
[2024-11-30 07:21] VITALS: BP 125/74; PULSE 75; RESP 15; TEMP 97.9
[2024-11-30 09:30] LABS: Magnesium 1.9 mg/dL (1.5-2.4)
[2024-11-30 09:41] LABS: BUN/Creat Ratio 22.67 Ratio (12.00-20.00); Blood Urea Nitrogen 40.8 mg/dL (9.0-27.0); Calcium 8.7 mg/dL (8.7-10.3); Carbon Dioxide 20.5 mmol/L (21.6-31.8); Chloride 106 mmol/L (96-109); Glucose 177 mg/dL (70-110); Sodium 138 mmol/L (135-145)
--- NOTE | 2024-11-30 12:22 | P.CN ---
Psychiatric Consult - . Consult date: 11/30/24 Consult:: 11/30/24 12:16 IDENTIFYING DATA: This patient is a 79-year-old male, retired and living at home with son REASON FOR REFERRAL: Psychiatry was consulted for anxiety, refusal of treatment HISTORY OF PRESENT ILLNESS: The patient presented to the hospital due to hypertension with initial blood pressure being 239/109. Patient reportedly has stage III chronic kidney disease. He has been intermittently refusing medications. Patient seen and evaluated today in his room. He did take his blood pressure medications today to which he states speaking to his son who ultimately convinced him to take these medications. He was reminded of the complications that could result with nonadherence with these medications including worsening in his CKD, hypertension which can ultimately lead to stroke or . Patient reports a long-term history of anxiety, he is currently on Ativan 1 mg 3 times daily as needed which is prescribed by his PCP to which he finds effective. He does mention previously being on antidepressant for this however he is no longer willing to restart an antidepressant given the effectiveness of Ativan. Patient reports some sleep difficulties while in the hospital, denying any depressive symptoms. At this time patient denies any suicidal or homicidal ideations, intent or plan. Patient denies any auditory, visual hallucinations and denies any paranoia or delusions. Patients admits to using no substances PAST PSYCHIATRIC HISTORY: Patient has a history of anxiety. He is currently prescribed Ativan 1 mg 3 times daily as needed prescribed by his outpatient provider and maps corroborated continuous filling with patient last fill of this medication on November 04, 2024. Patient denies any previous psychiatric hospitalizations. Patient did report seeing a psychiatrist many years ago. Patient denies any history of suicide attempts in the past. PAST MEDICAL HISTORY: Chronic kidney disease, hypertension, thyroid disorder. ALLERGIES: as per EMR. CHEMICAL DEPENDENCY HISTORY: as per HPI. FAMILY PSYCHIATRIC/SUBSTANCE USE HISTORY: Patient reports his mother suffer from mental health concerns SOCIAL HISTORY: Patient completed high school and is currently living with his son however he reports having 3 sons. He is retired from [employer]. MENTAL STATUS EXAM: General Appearance: Patient appears to be stated age is alert, pleasant, and cooperative. Patient appears to have fair hygiene and grooming wearing hospital gown with fair eye contact. Behavior: Patient is calmly lying in bed without any agitated behavior. Speech: Patient's speech is fluent and nonpressured. Mood/Affect: Patient reports their mood is "better", affect is congruent Suicidality/Homicidality: Patient denies having any suicidal or homicidal ideation intent or plan. Perceptions: Patient denies any visual hallucinations and denies any auditory hallucinations Though content/process: There is no evidence of any delusional thought content and thought process is linear and logical. Memory and concentration: AOX3, grossly intact for the purposes of this session. Can spell "WORLD" backwards Judgment and insight: Poor IMPRESSIONS: Anxiety, unspecified Mild cognitive impairment PLAN: -At this time patient DOES NOT meet criteria for inpatient psychiatric admission. -Would recommend the following medication changes/additions: Continue Ativan 1 mg 3 times daily as needed, patient declined starting any antidepressant medications as a safer alternative for his anxiety. Patient to follow-up with PCP for further adjustments. -Communicated plan to patient's nurse -Psychiatry will sign off at this time -Please contact with any questions.
--- NOTE | 2024-11-30 13:38 | P.PN ---
Subjective Progress Note Date: 11/30/24 Patient is seen in follow-up for chronic kidney disease and hypertension. Renal function slightly better today. Blood pressures is controlled. Oral intake is good. Denies chest pain or shortness of breath. Has been doing self catheterizations. Vital signs are stable. General: No acute distress. HEENT: Head exam is unremarkable. LUNGS: No audible rhonchi or wheezes. HEART: Rate and Rhythm are regular. ABDOMEN: Nontender. EXTREMITITES: No edema. Objective - Vital Signs Vital signs: Vital Signs Temp 97.9 F 11/30/24 06:55 Pulse 75 11/30/24 06:55 Resp 15 11/30/24 06:55 BP 125/74 11/30/24 06:55 Pulse Ox 96 11/30/24 06:55 FiO2 Intake & Output 11/29/24 11/30/24 11/30/24 18:59 06:59 18:59 Intake Total 658 240 Output Total 500 Balance 158 240 Intake: Oral 658 240 Output: Urine 500 Other: Voiding Method Self-Catheterization Self-Catheterization Self-Catheterization # Voids 3 # Bowel Movements 1 - Labs CBC & Chem 7: 11/26/24 09:12 11/30/24 05:01 Labs: Abnormal Lab Results - Last 24 Hours (Table) 11/30/24 Range/Units 05:01 Carbon Dioxide 20.5 L (21.6-31.8) mmol/L BUN 40.8 H (9.0-27.0) mg/dL Creatinine 1.8 H (0.6-1.5) mg/dL Est GFR (CKD-EPI) 38 L (>=60) BUN/Creatinine Ratio 22.67 H (12.00-20.00) Ratio Glucose 177 H (70-110) mg/dL Assessment and Plan Assessment: Assessment: 1. Chronic kidney disease stage IIIa with baseline creatinine 1.3-1.5 secondary to nephrosclerosis/ischemic nephropathy. GFR near baseline. UA benign. 2. Hypertension with chronic kidney disease. Partially due to noncompliance with home antihypertensives. TSH slightly high at 5.9. Cortisol level not high. No clear evidence of renal artery stenosis on duplex ultrasound. However left kidney noted to be atrophic concerning for ischemic nephropathy. 3. Mild hypokalemia from poor intake versus high aldosterone state. Replaced. Improved. 4. Chronic urinary retention. Patient follows with urology outpatient. Performing self catheterizations. Plan: Encouraged oral intake. BP controlled Currently on Coreg, clonidine. Aldactone added November 28, 2024. Check orthostatic vital signs. Patient refused to take amlodipine. Allergic to losartan. Maintain as needed hydralazine for now. Follow-up renin and aldosterone levels. Follow-up plasma metanephrines. Follow-up outpatient 1 week postdischarge.
[2024-12-03 16:41] LABS: Metanephrine, Free 27 pg/mL (< OR = 57); Normetanephrine, Free 61 pg/mL (< OR = 148); Total, Free (MN + NMN) 88 pg/mL (< OR = 205)
== END 2024-11-30 14:43 | disposition home or self-care (01) ==
LOC: EC 14:45 → 6NMEDSUR 20:28
PROVIDERS: ADMIT Hospitalist; ATTEND Hospitalist
DX: I16.0 Hypertensive urgency (principal); T46.5X6A Underdosing of other antihypertensive drugs, initial encounter; T46.1X6A Underdosing of calcium-channel blockers, initial encounter; Z91.128 Patient's intentional underdosing of medication regimen for other reason; N17.9 Acute kidney failure, unspecified; I12.9 Hypertensive chronic kidney disease with stage 1 through stage 4 chronic kidney disease, or unspecified chronic kidney disease; N18.31 Chronic kidney disease, stage 3a; E87.6 Hypokalemia; R33.9 Retention of urine, unspecified; E03.9 Hypothyroidism, unspecified; R73.9 Hyperglycemia, unspecified; J30.2 Other seasonal allergic rhinitis; G31.84 Mild cognitive impairment of uncertain or unknown etiology; Z91.148 Patient's other noncompliance with medication regimen for other reason; Z79.899 Other long term (current) drug therapy; Z88.0 Allergy status to penicillin; Z88.1 Allergy status to other antibiotic agents; Z88.8 Allergy status to other drugs, medicaments and biological substances; Z87.891 Personal history of nicotine dependence
CPT/HCPCS: 96376 ×4; 96361 ×2; 96374; 96375; 99285; 36415; 93005; 83835; 84439; 80053; 80048 ×5; 84443; 82533; 82088; 84244; 83735 ×5; 84484; 85025 ×2; 81001; 87086; 93975; G0378 ×6; J0360 ×3; J1920; 87077; 87186

== ENCOUNTER 2025-03-10 20:48 | Emergency (ER) | payer MEDICARE ==
--- NOTE | 2025-03-10 21:06 | ED ---
Recheck HPI - General Chief Complaint: Recheck/Abnormal Lab/Rx Stated Complaint: hypertension Time Seen by Provider: 03/10/25 21:03 Source: patient, EMS, RN notes reviewed, old records reviewed Mode of arrival: EMS Limitations: no limitations - History of Present Illness Initial Comments: This is a 79-year-old male to the ER for evaluation as patient presents today for evaluation regards to severe anxiety attack. Patient has not been taking good care of himself, recently moving to a [place] son at bedside states that the patient has not been in a good mental space with this move severely anxious and noted to have elevated blood pressure now for a few days but was shaking and having a difficult time today causing the son to call EMS due to concern for his father's wellbeing. The father here here in the ER has no complaints MD Complaint: other (Does admit to anxiety) -: days(s) Symptoms Since Prior Visit: no new symptoms Context: planned re-check, called for abnormal lab result Associated Symptoms: none Treatments Prior to Arrival: other (0) - Related Data Home Medications Medication Instructions Recorded Confirmed atenoloL [Tenormin] 50 mg PO BID 07/04/17 11/25/24 Fluticasone Nasal [place] [Flonase 1 spray EA NOSTRIL BID PRN 07/26/19 11/25/24 Nasal [place]] cloNIDine HCL [Catapres] 0.1 mg PO BID 07/26/19 11/25/24 Ketoconazole 2% Cream [Nizoral 2%] 1 applic TOPICAL QID PRN 11/25/24 11/25/24 LORazepam 1 mg PO TID PRN 11/25/24 11/25/24 Previous Rx's Medication Instructions Recorded Spironolactone [Aldactone] 25 mg PO DAILY 30 Days #30 tab 11/30/24 carvediloL [Coreg*] 12.5 mg PO BID-W/MEALS 30 Days #30 11/30/24 tab LORazepam [Ativan] 1 mg PO TID 3 Days #9 tab 03/10/25 amLODIPine [Norvasc] 10 mg PO DAILY #60 tablet 03/11/25 Allergies Allergy/AdvReac Type Severity Reaction Status Date / Time amoxicillin Allergy Unknown Verified 03/10/25 20:57 cephalexin Allergy Unknown Verified 03/10/25 20:57 ciprofloxacin [From Cipro] Allergy Unknown Verified 03/10/25 20:57 doxazosin Allergy Unknown Verified 03/10/25 20:57 doxycycline Allergy Unknown Verified 03/10/25 20:57 epinephrine Allergy Unknown Verified 03/10/25 20:57 losartan Allergy Unknown Verified 03/10/25 20:57 methylprednisolone Allergy Unknown Verified 03/10/25 20:57 nystatin AdvReac Unknown Verified 03/10/25 21:59 Review of Systems ROS Statement: Those systems with pertinent positive or pertinent negative responses have been documented in the HPI. ROS Other: All systems not noted in ROS Statement are negative. Past Medical History Past Medical History: Hypertension, Renal Disease, Thyroid Disorder Additional Past Medical History / Comment(s): Pt states he is unable to urinate- he self caths 6-8 times a day r/t bladder malfunction, renal disease and pt states GFR has been around 48, UTIs, cervical disc disease, hypothyroid, upper abdominal pain 2 weeks ago, bilateral tinnitis, headaches, sinusitis. History of Any Multi-Drug Resistant Organisms: None Reported Past Surgical History: No Surgical Hx Reported Additional Past Surgical History / Comment(s): colonoscopy-normal Past Anesthesia/Blood Transfusion Reactions: No Reported Reaction Past Psychological History: Anxiety, Depression, Panic Disorder Smoking Status: Former smoker Past Alcohol Use History: None Reported Past Drug Use History: None Reported - Past Family History Father Family Medical History: No Reported History, Cancer Additional Family Medical History / Comment(s): Father was healthy. He lived to be 82 yrs. old. Mother Family Medical History: CVA/TIA, Hypertension Additional Family Medical History / Comment(s): Mother had mental health problems. She lived to be 80yrs old. Son(s) Family Medical History: Coronary Artery Disease (CAD) Additional Family Medical History / Comment(s): Patient does not have any brothers or sisters, no daughters General Exam General appearance: alert, in no apparent distress Head exam: Present: atraumatic, normocephalic, normal inspection Eye exam: Present: normal appearance, PERRL, EOMI. Absent: scleral icterus, conjunctival injection, periorbital swelling ENT exam: Present: normal exam, mucous membranes moist Neck exam: Present: normal inspection. Absent: tenderness, meningismus, lymphadenopathy Respiratory exam: Present: normal lung sounds bilaterally. Absent: respiratory distress, wheezes, rales, rhonchi, stridor Cardiovascular Exam: Present: regular rate, normal rhythm, normal heart sounds. Absent: systolic murmur, diastolic murmur, rubs, gallop, clicks GI/Abdominal exam: Present: soft, normal bowel sounds. Absent: distended, tenderness, guarding, rebound, rigid Extremities exam: Present: normal inspection, full ROM, normal capillary refill. Absent: tenderness, pedal edema, joint swelling, calf tenderness Back exam: Present: normal inspection Neurological exam: Present: alert, oriented X3, CN II-XII intact Psychiatric exam: Present: normal affect, normal mood Skin exam: Present: warm, dry, intact, normal color. Absent: rash Course Vital Signs 03/10/25 03/10/25 03/10/25 20:53 21:59 22:15 Temperature 97.9 F 97.7 F Pulse Rate 102 H 102 H 101 H Respiratory 18 19 Rate Blood Pressure 184/136 183/121 165/123 O2 Sat by Pulse 99 98 98 Oximetry 03/10/25 03/10/25 22:31 23:29 Temperature 98.1 F Pulse Rate 96 97 Respiratory 19 19 Rate Blood Pressure 154/116 151/113 O2 Sat by Pulse 98 97 Oximetry - Reevaluation(s) Reevaluation #1: 03/10/25 22:01 Medical records reviewed Reevaluation #2: 03/10/25 22:12 Refusing all medication and treatment of hypertension here in now now ER Reevaluation #3: 03/10/25 22:12 Patient informed of results questions answered Reevaluation #4: Was pt. sent in by a medical professional or institution (, PA, YOUTH CARE PROFESSIONAL, urgent care, hospital, or intermediate...) When possible be specific @ -no Did you speak to anyone other than the patient for history (EMS, parent, family, police, friend...)? What history was obtained from this source @ -no Did you review nursing and triage notes (agree or disagree)? Why? @ -agree Are old charts reviewed (outside hosp., previous admission, EMS record, old EKG, old radiological studies, urgent care reports/EKG's, intermediate records)? Report findings @ -yes Differential Diagnosis (chest pain, altered mental status, abdominal pain women, abdominal pain men, vaginal bleeding, weakness, fever, dyspnea, syncope, headache, dizziness, GI bleed, back pain, seizure, CVA, palpatations, mental health, musculoskeletal)? @ -prior EKG interpreted by me (3pts min.). @ -yes X-rays interpreted by me (1pt min.). @ -no CT interpreted by me (1pt min.). @ -no U/S interpreted by me (1pt. min.). @ -no What testing was considered but not performed or refused? (CT, X-rays, U/S, labs)? Why? @ -none What meds were considered but not given or refused? Why? @ -none Did you discuss the management of the patient with other professionals (professionals i.e. , PA, YOUTH CARE PROFESSIONAL, lab, RT, psych nurse, psychiatric social worker supervisor, link fabric machine operator, teacher, officer captain, porter sample case)? Give summary @ -no Was smoking cessation discussed for >3mins.? @ -no Was critical care preformed (if so, how long)? @ -no Were there social determinants of health that impacted care today? How? (Homelessness, low income, unemployed, alcoholism, drug addiction, transportation, low edu. Level, literacy, decrease access to med. care, detention, rehab)? @ -none Was there de-escalation of care discussed even if they declined (Discuss DNR or withdrawal of care, Hospice)? DNR status @ -no What co-morbidities impacted this encounter? (DM, HTN, Smoking, COPD, CAD, Cancer, CVA, ARF, Chemo, Hep., AIDS, mental health diagnosis, sleep apnea, morbid obesity)? @ -none Was patient admitted / discharged? Hospital course, mention meds given and route, prescriptions, significant lab abnormalities, going to OR and other pertinent info. @ - 79 male uncontrolled blood pressure severe anxiety refusing all blood pr essure medication in the ER patient discharged home given anxiety medication here in the ER Discharge Undiagnosed new problem with uncertain prognosis? @ -no Drug Therapy requiring intensive monitoring for toxicity (Heparin, Nitro, Insulin, Cardizem)? @ -no Were any procedures done? @ -no Diagnosis/symptom? @ -Hypertension with anxiety Acute, or Chronic, or Acute on Chronic? @ -Acute Uncomplicated (without systemic symptoms) or Complicated (systemic symptoms)? @ -Complicated Side effects of treatment? @ -no Exacerbation, Progression, or Severe Exacerbation? @ -exacerbation Poses a threat to life or bodily function? How? (Chest pain, [place], [place], pneumonia, PE, COPD, DKA, ARF, appy, cholecystitis, CVA, Diverticulitis, Homicidal, Suicidal, threat to staff... and all critical care pts) @ -yes extremes of age Medical Decision Making - Medical Decision Making 79 male uncontrolled blood pressure severe anxiety refusing all blood pressure medication in the ER patient discharged home given anxiety medication here in the ER - Lab Data Result diagrams: 03/10/25 21:09 03/10/25 21:09 Lab Results 03/10/25 03/10/25 03/10/25 Range/Units 21:09 21:09 21:09 WBC 9.50 (4.50-10.00) 10*3/uL RBC 4.73 (4.40-5.60) 10*6/uL Hgb 15.1 (13.0-17.0) g/dL Hct 41.5 (39.6-50.0) % MCV 87.7 (80.0-97.0) fL MCH 31.9 (27.0-32.0) pg MCHC 36.4 (32.0-37.0) g/dL Plt Count 200 (140-440) 10*3/uL MPV 11.4 (9.5-12.2) fL Immature Gran % (Auto) 0.2 % Neutrophils % 78.9 % Lymphocytes % 13.5 % Monocytes % 6.3 % Eosinophils % 0.6 % Basophils % 0.5 % Immature Gran # 0.02 (0.00-0.04) 10*3/uL Neutrophils # 7.49 (1.80-7.70) 10*3/uL Lymphocytes # 1.28 (0.90-5.00) 10*3/uL Monocytes # 0.60 (0.20-1.00) 10*3/uL Eosinophils # 0.06 (0.04-0.35) 10*3/uL Basophils # 0.05 (0.00-0.10) 10*3/uL Sodium 138 (137-145) mmol/L Potassium 3.5 (3.5-5.1) mmol/L Chloride 103 (98-107) mmol/L Carbon Dioxide 21 L (22-30) mmol/L Anion Gap 14 mmol/L BUN 15 (9-20) mg/dL Creatinine 1.21 (0.66-1.25) mg/dL Est GFR (CKD-EPI)AfAm 66 (>60 ml/min/1.73 sqM) Est GFR (CKD-EPI)NonAf 57 (>60 ml/min/1.73 sqM) Glucose 175 H (74-99) mg/dL Calcium 9.3 (8.4-10.2) mg/dL Phosphorus 2.8 (2.5-4.5) mg/dL Magnesium 1.7 (1.6-2.3) mg/dL Total Bilirubin 0.8 (0.2-1.3) mg/dL AST 18 (17-59) U/L ALT 15 (4-49) U/L Alkaline Phosphatase 106 (38-126) U/L Troponin I <0.012 (0.000-0.034) ng/mL NT-Pro-B Natriuret Pep 183 pg/mL Total Protein 7.0 (6.3-8.2) g/dL Albumin 4.5 (3.5-5.0) g/dL - EKG Data -: EKG Interpreted by Me (EKG is sinus 90 PA 236 QRS 93 QTc 460) Disposition Clinical Impression: Palpitations, Hypertensive urgency, Anxiety Disposition: HOME SELF-CARE Condition: Fair Instructions (If sedation given, give patient instructions): Hypertension (ED), Anxiety (ED) Prescriptions: LORazepam [Ativan] 1 mg PO TID 3 Days #9 tab amLODIPine [Norvasc] 10 mg PO DAILY #60 tablet Is patient prescribed a controlled substance at d/c from ED?: No Referrals: Jeff Abraham [Primary Care Provider] - 1-2 days
[2025-03-10] MEDS: SODIUM CHLORIDE 0.9% 1,000 ML IV SCH (21:13)
[2025-03-10 21:31] LABS: Basophils # (A) 0.05 10*3/uL (0.00-0.10); Basophils % (A) 0.5 %; Eosinophils # (A) 0.06 10*3/uL (0.04-0.35); Eosinophils % (A) 0.6 %; HCT 41.5 % (39.6-50.0); HGB 15.1 g/dL (13.0-17.0); Lymphocytes # (A) 1.28 10*3/uL (0.90-5.00); Lymphocytes % (A) 13.5 %; MCH 31.9 pg (27.0-32.0); MCHC 36.4 g/dL (32.0-37.0); MCV 87.7 fL (80.0-97.0); Monocytes # (A) 0.60 10*3/uL (0.20-1.00); Monocytes % (A) 6.3 %; Neutrophils # (A) 7.49 10*3/uL (1.80-7.70); Neutrophils % (A) 78.9 %; Platelet Count 200 10*3/uL (140-440); RBC 4.73 10*6/uL (4.40-5.60); RDW 11.9 % (11.5-14.5); WBC 9.50 10*3/uL (4.50-10.00)
[2025-03-10 21:45] LABS: ALT 15 U/L (4-49); AST 18 U/L (17-59); African American GFR (CKD) 66 (>60 ml/min/1.73 sqM); Albumin 4.5 g/dL (3.5-5.0); Alkaline Phosphatase 106 U/L (38-126); Anion Gap 14 mmol/L; Blood Urea Nitrogen 15 mg/dL (9-20); Calcium 9.3 mg/dL (8.4-10.2); Carbon Dioxide 21 mmol/L (22-30); Chloride 103 mmol/L (98-107); Glucose 175 mg/dL (74-99); Magnesium 1.7 mg/dL (1.6-2.3); Non-African American GFR(CKD) 57 (>60 ml/min/1.73 sqM); Potassium 3.5 mmol/L (3.5-5.1); Sodium 138 mmol/L (137-145); Total Protein 7.0 g/dL (6.3-8.2)
[2025-03-10 21:52] LABS: NT-Pro-B-Type Natriuretic Pept 183 pg/mL
[2025-03-10 22:04] VITALS: RESP 19
[2025-03-10] MEDS: LABETALOL 5 MG/ML VIAL MDV IVP STA (22:04)
[2025-03-10] MEDS: LORazepam 1 MG/0.5 ML VIAL IV STA (22:22)
[2025-03-10] MEDS: cloNIDine 0.2 MG/24HR PATCH TRANSDERM STA (22:25)
[2025-03-10] MEDS: ONDANSETRON 4 MG/2 ML VIAL IVP STA (22:25)
[2025-03-10 23:30] VITALS: BP 151/113; PULSE 97; TEMP 98.1
== END 2025-03-11 00:02 | disposition home or self-care (01) ==
LOC: EC 20:48
DX: F41.9 Anxiety disorder, unspecified (principal); R00.2 Palpitations; I16.0 Hypertensive urgency; Z87.891 Personal history of nicotine dependence; Z88.0 Allergy status to penicillin; Z88.1 Allergy status to other antibiotic agents; Z88.8 Allergy status to other drugs, medicaments and biological substances
CPT/HCPCS: 36415; 93005; 83880; 80053; 83735; 84100; 84484; 85025; 99283; 96374; J2060